=== PATIENT | female | born 1950 | race Caucasian/White ===

== ENCOUNTER 2018-11-04 09:37 | Inpatient (IN) | payer MEDICARE, OTHER, SELFPAY ==
[2018-11-04] VITALS (10 sets, daily range): BP systolic 110–141; BP diastolic 58–80; PULSE 81–100; RESP 16–20; TEMP 36.3–37.6; O2SAT 94–100; BMI 49.4
--- NOTE | 2018-11-04 | FLU_PTH ---
PATIENT: ANNY RODRIGUES LOC: MS3 U#:[id number] AGE/SX: 68/F ROOM: RI312 RE11/04/[address]: Dr. Tom Dewey MD : [id number] BED: 1 DIS: 11/07/2018 SPEC #: [id number] RECD: 11/04/18 10:30 STATUS: JOSE LUIS REGisela #: [id number] JUAN CARLOS: 11/04/18 00:[address]: Tom Dewey DEPT: CYTOLOGY RECD BY: Kadi Mccormack ENTERED: 11/04/18 11:45 SP TYPE: Fluid OTHR DR: Dr. Tere Davila MD Tissues: A - Synovial fluid B - FOREIGN BODY Procedures: PAS Fungus (control) Surgery Specimen Level I Special Stain Group II Special Stain Group I Surgery Specimen Level IV AFB Stain (control) Cytospin Fluid HEADER OPERATION: Not noted PRE-OP DIAGNOSIS: Not noted TISSUE SUBMITTED: A. Synovial fluid, B. Foreign body (found by Micro staff) DIAGNOSIS CYTOLOGY A. Synovial fluid (cytospin and cell block): Negative for malignant cells. Acute inflammation. See comment. B. Foreign body: Consistent with nonmetallic foreign body. SJ:zachery 11/05/18 COMMENT A. Special stains for acid fast bacilli and fungi are negative for organisms; matched controls are appropriate. Clinical correlation and appropriate follow up are necessary. CYTOLOGY STUDY Slides are reviewed. CYTOLOGY GROSS A - Received is 10 ml of thick/cloudy pale yellow fluid labeled with the patient's name and and designated per the requisition as left knee. Submitted for cytology preparation including cell block. / CC:cc 11/04/18 B - Received along with cytology fluid is a dark lema-black, nonmetallic foreign body measuring 0.8 x 0.2 x <0.1 cm. No sections are submitted. / AM:zachery 11/04/18 TC:2 CPT: 62073, 50067, 85332, 08763 x2
[2018-11-04 10:31] LABS: Acid Fast Stain SEE PATHOLOGY REPORT; Cytology, Body Fluid / CSF SEE PATHOLOGY REPORT
[2018-11-04 10:55] LABS: Erythrocyte Sedimentation Rate 87 mm/hr (0-30)
[2018-11-04 10:57] LABS: Absolute Lymphocyte Count 0.54 X10^3/ul (0.83-4.51); Absolute Neutrophil Count 7.9 X10^3/uL (2.0-7.7); Basophil# 0.01 X10^3/uL; Basophil% 0.1 % (0-1); Hematocrit 39.9 % (37-47); Lymphocyte # 0.54 X10^3/ul (4.0); Mean Corp Hgb Conc 32.6 g/gl (32-36); Mean Corpuscular Hgb 30.2 pg (27.0-32.0); Mean Corpuscular Volume 92.8 fL (81-99); Mean Platelet Vol. 10.8 fl (6.2-12.0); Monocyte# 0.56 X10^3/uL; Monocyte% 6.2 % (0-10); Neutrophil % 87.6 % (47-70); Platelet Count 160 K/mm3 (150-450); RBC Distribution Width SD 46.4 fl (35.1-43.9)
[2018-11-04 10:57] LABS: AUTO B FLUID DILUENT BKGD CT WBC <0.1 RBC <0.01 (W<.1,R<.01); Viscosity / Synovial Fluid Mod. Viscous (HIGH)
[2018-11-04 10:58] LABS: Differential Indicated SCAN CRITERIA MET; POSITIVE COUNT NO; POSITIVE DIFFERENTIAL YES; POSITIVE MORPHOLOGY NO
[2018-11-04 11:08] LABS: RBC /Synovial Fluid 0.024 10^6/uL (0)
[2018-11-04 11:09] LABS: Appearance /Synovial Fluid Cloudy (CLEAR); Color / Synovial Fluid YELLOW (Pale Yellow)
[2018-11-04 11:55] LABS: Lymph 9 %; Neutrophil 91 % (0-25)
[2018-11-04 12:41] LABS: Body Fluid QC Type(s) BF5Q
[2018-11-04 13:29] LABS: Anion Gap 8 (5-15); BUN 9 mg/dL (7-18); BUN/Creat Ratio 12.6 RATIO (10-20); Calcium,Total 8.4 mg/dL (8.5-10.1); Chloride 102 mmol/L (98-107); Creatinine, Serum 0.72 mg/dL (0.55-1.02); EST Glomerular Filtration Rate 86 mL/min (>60); Est Glom Filt Rate - Afr Amer 104 mL/min (>60); Glucose 99 mg/dL (74-106); Potassium 3.5 mmol/L (3.5-5.1); Sodium Level 133 mmol/L (136-145)
[2018-11-04 15:45] LABS: Source / Synovial Fluid L KNEE
--- NOTE | 2018-11-04 16:47 | OP.PCM_ITS ---
Report of Operation Date of Procedure: 11/04/18 Pre-Operative Diagnosis: Acute hematogenous infection left TKA Post-Operative Diagnosis: Acute hematogenous infection left TKA Surgery/Procedure Performed:: Irrigation debridement with polyethylene exchange left total knee replacement Description of Surgical Findings:: Complete synovial debridement material handling equipment stevedore: Lesly Grijalva Type of Anesthesia:: Spinal Anesthesiologist: Chirag Iverson Special Medications: 3 g Ancef, 1 g vancomycin IV, 1 g vancomycin in the wound. Specimen's removed: 3 separate specimens were sent to micrology Drains: Lateral suprapatellar Hemovac drain Estimated Blood Loss (mL): 75 Fluids Replaced: 1 L crystalloid Description of Procedure: 68 yo F history of L TKA in August 2016 presents with acute hematogenous infection of her left total knee. Reviewed options were discussed the patient. Based on acuity of the symptoms and organism irrigation debridement with polyethylene exchange is recommended. Risks and benefits of the procedure were discussed with the patient including but not limited to blood loss, DVTs, PEs, neurovascular damage, infection, general risk of anesthesia including loss of life. Demonstrated understanding and was able to sign informed consent. On the date of procedure patient'sL lower extremity was marked in the preoperative area. The patient was then taken back to the operating room where the patient was placed on the table in the supine position. All bony prominences were identified a well-padded. Anesthesia assumed control of the C-spine and airway and remained controlled throughout the remainder of the procedure. A tourniquet was placed on the operative thigh and the leg was prepped in a sterile fashion. The surgeon then scrubbed at this time .Upon reentering the room left lower extremity was draped in a standard orthopedic fashion. A timeout was then called and everyone agreed upon the side, the site, the procedure to be performed, patient's identity and antibiotics given. A midline skin incision was made and sharp dissection was taken down through skin subcutaneous tissue and fat. Appropriate flaps were elevated medially and laterally. His arthrotomy was identified and the standard medial parapatellar incision was made and the patella was subluxed laterally. The standard deep MCL release was done. At this point an aggressive synovectomy commenced. Our attention was first turn ed towards the subpatellar pouch and all suspicious synovium and tissues were debrided. We then directed our attention towards medial lateral gutters were these tissues were aggressively debrided. Knee was then flexed up the polyethylene was removed. Once polyethylene was removed we did the remainder of the synovium in the medial and lateral gutters and along the lateral structures and MCL. We then debrided the posterior knee. Knee was flexed up and culture was taken from the femoral notch. And also there was a membrane beneath the tibial baseplate that was removed and sent for culture. He had completed our synovectomy and were happy with the joint. We then used a chlorahexadine with sterile water solution for 1 minute lavage. 6 L of normal saline were then irrigated throughout the wound with low-pressure lavage and the wound was once again explored. All remaining tissue that was suspicious was seen in the wound was once again irrigated with normal saline. 10 mm ultracongruent Ottoniel persona polyethylene was then opened and put back into place after appropriate trialing. Tourniquet was let down and hemostasis was obtained as well as possible. Lateral drain was placed in 1 g of vancomycin powder were placed in the wound/joint. Once the final components were placed the wound was copiously irrigated with normal saline solution. The wound was closed in a layer del valle fashion using #1 vicryl interrupted sutures for the arthrotomy, 2-0 interrupted Vicryl for the subcuticular layer and orquidea for final skin closure. A sterile compressive dressing was then placed. The patient was then awakened from anesthesia, transferred to the [facility] and transferred to the PACU for recovery. Post op plan Infectious disease will be consulted. I started Ancef and vancomycin for the next 24 hours. Patient can be weightbearing as tolerated activity as tolerated. Xarelto for DVT prophylaxis for 2 weeks followed by aspirin for 2 weeks. Grafts/Implants Used: Ottoniel ultra congruent persona 10 mm for size E tibia - Complications No intraoperative complications - Admit VTE Documentation VTE Present on Admission: No VTE Mechan Device Prophylaxis: SCD's, Thigh High JIN Hose VTE Pharm Prophylaxis ordered?: Yes
[2018-11-04] MEDS: Vancomycin IV 1,000 MG/200 ML BAG 200 MG IV (17:03)
[2018-11-04] MEDS: Morphine 2 MG/ML Syringe IV (20:00)
[2018-11-04] MEDS: Lactated Ringers 1,000 ML 90 ML IV (20:14)
[2018-11-04] MEDS: Ketorolac 15 MG/ML Vial IV (20:30)
[2018-11-04] MEDS: Acetaminophen 500 MG Tablet 1000 MG PO (21:37)
[2018-11-04] MEDS: Senna/Docusate Sodium 1 Tablet 2 TABLET PO (21:38)
[2018-11-05] MEDS: Cefazolin 1 GM/50 ML BAG IV ×2 (00:30→08:28)
[2018-11-05] MEDS: oxyCODONE 5 MG Tablet PO ×5 (02:10→20:49)
[2018-11-05 02:16] VITALS: BP 146/70; PULSE 81; RESP 20; TEMP 36.4; O2SAT 100
[2018-11-05] MEDS: Ketorolac 15 MG/ML Vial IV (02:21)
[2018-11-05 05:37] LABS: Hematocrit 33.5 % (37-47); Hemoglobin 10.9 g/dl (12.0-15.0); Mean Corp Hgb Conc 32.5 g/gl (32-36); Mean Corpuscular Hgb 30.4 pg (27.0-32.0); Mean Corpuscular Volume 93.6 fL (81-99); Mean Platelet Vol. 10.5 fl (6.2-12.0); Platelet Count 154 K/mm3 (150-450); RBC Distribution Width SD 46.1 fl (35.1-43.9); Red Blood Count 3.58 M/mm3 (4.2-5.4); White Blood Count 6.2 K/mm3 (4.4-11.0)
[2018-11-05] MEDS: Vancomycin IV 1,000 MG/200 ML BAG 200 MG IV ×2 (05:40→17:13)
[2018-11-05 05:42] LABS: Scan Indicated on CBC? Y/N NO
[2018-11-05] MEDS: Acetaminophen 500 MG Tablet 1000 MG PO ×3 (05:46→21:00)
[2018-11-05] MEDS: Rivaroxaban 10 MG Tablet PO (05:46)
[2018-11-05 05:59] LABS: Anion Gap 8 (5-15); BUN 7 mg/dL (7-18); BUN/Creat Ratio 10.7 RATIO (10-20); Calcium,Total 8.3 mg/dL (8.5-10.1); Chloride 104 mmol/L (98-107); Creatinine, Serum 0.65 mg/dL (0.55-1.02); EST Glomerular Filtration Rate 95 mL/min (>60); Est Glom Filt Rate - Afr Amer 115 mL/min (>60); Glucose 114 mg/dL (74-106); Potassium 3.4 mmol/L (3.5-5.1); Sodium Level 137 mmol/L (136-145)
--- NOTE | 2018-11-05 07:09 | PN.ORTHO_ITS ---
Subjective: Patient sitting up in bed. States pain is much better than yesterday. Patient denies chest pain, shortness breath, calf pain, nausea vomiting. No other complaints at this time. Objective: Dressing is clean dry intact. Hemovac drain in place with a small amount of bloody fluid, which is not measurable. Patient's vitals are within normal limits patient's potassium is 3.4 patient is afebrile. Negative signs and symptoms of DVT. Patient neurovascular is otherwise intact. Patient is speaking in full sentences, in no obvious respiratory distress. - Physical Exam General: Alert, Oriented x3, Cooperative HEENT: PERRLA Oral: Moist Mucosa Cardiovascular: Regular rate Neurological: Cranial nerves II-XII grossly intact Psych/Mental Status: Normal Affect, Alert and oriented to time, place, person, mood and affect Vital Signs Temp Pulse Resp BP Pulse Ox 97.6 F L 81 20 H 146/70 H 100 11/05/18 02:16 11/05/18 02:16 11/05/18 02:16 11/05/18 02:16 11/05/18 02:16 Oxygen Flow Rate (L/min) 2 Oxygen Delivery Method Room Air Weight: 122.47 kg Body Mass Index (BMI) 49.4 Intake and Output for Last 24 Hours 11/03/18 11/04/18 11/05/18 23:59 23:59 23:59 Intake Total 1700 / 1700 2417 / 2417 Output Total 1550 / 1550 Balance 1700 / 1700 867 / 867 Microbiology Past 72 Hours 11/04/18 Unknown Gram Stain - Final Fluid - Synovial (joint) Laboratory Tests Past 24 Hrs 11/04/18 11/04/18 11/04/18 09:52 09:52 09:52 WBC 9.0 RBC 4.30 Hgb 13.0 Hct 39.9 MCV 92.8 MCH 30.2 MCHC 32.6 RDW 14.0 RDW Differential 46.4 H Plt Count 160 MPV 10.8 Immature Gran % (Auto) 0.100 Neut % (Auto) 87.6 H Lymph % (Auto) 6.0 L [place] % (Auto) 6.2 Eos % (Auto) 0.0 Baso % (Auto) 0.1 Absolute Neuts (auto) 7.9 H Absolute Lymphs (auto) 0.54 L Total Counted Not Reportable ESR 87 H Cancelled Sodium Potassium Chloride Carbon Dioxide Anion Gap BUN Creatinine Estim Creat Clear Calc Est GFR (MDRD) Af Amer Est GFR (MDRD) Non-Af BUN/Creatinine Ratio Glucose Calcium C-React Prot Ext Range 264.00 H Synovial Source Synovial Color Synovial Appearance Synovial Viscosity Synovial WBC Synovial RBC Synovial Tot Cell Ct Synovial Neutrophils Synovial Lymphocytes Synovial Path Comment Acid Fast Stain Miscellaneous Cytology 11/04/18 11/04/18 11/04/18 09:52 Unknown Unknown WBC RBC Hgb Hct MCV MCH MCHC RDW RDW Differential Plt Count MPV Immature Gran % (Auto) Neut % (Auto) Lymph % (Auto) [place] % (Auto) Eos % (Auto) Baso % (Auto) Absolute Neuts (auto) Absolute Lymphs (auto) Total Counted ESR Sodium 133 L Potassium 3.5 Chloride 102 Carbon Dioxide 23.0 Anion Gap 8 BUN 9 Creatinine 0.72 Estim Creat Clear Calc 41.40 Est GFR (MDRD) Af Amer 104 Est GFR (MDRD) Non-Af 86 BUN/Creatinine Ratio 12.6 Glucose 99 Calcium 8.4 L C-React Prot Ext Range Synovial Source L KNEE Synovial Color YELLOW Synovial Appearance Cloudy Synovial Viscosity Mod. Viscous Synovial WBC 71.7000 H Synovial RBC 0.024 H Synovial Tot Cell Ct 71.5300 H Synovial Neutrophils 91 H Synovial Lymphocytes [address] Comment May follow Acid Fast Stain Pending Miscellaneous Cytology Pending 11/05/18 11/05/18 05:20 05:20 WBC 6.2 RBC 3.58 L Hgb 10.9 L Hct 33.5 L MCV 93.6 MCH 30.4 MCHC 32.5 RDW 14.0 RDW Differential 46.1 H Plt Count 154 MPV 10.5 Immature Gran % (Auto) Neut % (Auto) Lymph % (Auto) [place] % (Auto) Eos % (Auto) Baso % (Auto) Absolute Neuts (auto) Absolute Lymphs (auto) Total Counted ESR Sodium 137 Potassium 3.4 L Chloride 104 Carbon Dioxide 25.0 Anion Gap 8 BUN 7 Creatinine 0.65 Estim Creat Clear Calc 41.40 Est GFR (MDRD) Af Amer 115 Est GFR (MDRD) Non-Af 95 BUN/Creatinine Ratio 10.7 Glucose 114 H Calcium 8.3 L C-React Prot Ext Range Synovial Source Synovial Color Synovial Appearance Synovial Viscosity Synovial WBC Synovial RBC Synovial Tot Cell Ct Synovial Neutrophils Synovial Lymphocytes Synovial Path Comment Acid Fast Stain Miscellaneous Cytology Medical Necessity - Tobacco Use Smoking Status: Never smoker Assessment/Plan Status post I&D and poly-exchange of a septic left total knee Plan 1. Continue all pain medications as prescribed 2. Xarelto 10 mg 1 p.o. daily for postop DVT prophylaxis 3. Begin physical therapy weight-bear as tolerated with walker 4. Encourage incentive spirometry 5. Medicine will continue to medically manage. 6. ID will direct IV antibiotic treatment
[2018-11-05] MEDS: Famotidine 20 MG Tablet PO (08:31)
[2018-11-05] MEDS: Senna/Docusate Sodium 1 Tablet 2 TABLET PO ×2 (08:31→21:00)
[2018-11-05 08:32] VITALS: BP 154/77; PULSE 78; RESP 16; TEMP 36.3; O2SAT 96
--- NOTE | 2018-11-05 10:00 | CASEMGMT ---
YUSUF LING Face to Face with patient for initial transition planning/care coordination assessment. RN CM introduced self and role at [facility]. Patient lying in bed, alert and oriented, at bedside. Patient willing to participate in assessment and is able to answer all questions appropriately. Care providers, pharmacy, and demographics verified. Patient wishes to discharge home,with possible HHC for IV ATBs and therapy. Patient states she has no further needs or concerns at this time. CM to follow for discharge planning needs that may arise. PCP: Lola Specialists: Zuleima Fuller Pharmacy: [facility] Insurance: [employer] Prescription Benefit: yes Living Will/HPOA: yes, Anthony Connors LNOK: Living Arrangements: Patient lives with in single story home with 2 steps to enter. Patient independent at home prior to surgery. Transportation: DME/HHC: Patient states she has shower chair, cane, walker, raised toilet, and cpap at home. No preference for HHC or infusion company. Referral sent to [facility] and [facility]. Disposition Plan: Home with IV ATBs, HHC, family support, and follow-up plans in place. Mica CARVER, RN, CM
--- NOTE | 2018-11-05 10:24 | PCM.RX.CS ---
Consult Pharmacy has been consulted to manage selected antiobiotic: Vancomycin Type of Consult: New start Suspected Infection: Other Prior Doses of Antibiotics Received/Current Regimen: VANCOMYCIN 1000MG IV POST-OP 11/04/18 @0540 Labs: Sodium 137 mmol/L (136-145) 11/05/18 05:20 Potassium 3.4 mmol/L (3.5-5.1) L 11/05/18 05:20 Chloride 104 mmol/L (98-107) 11/05/18 05:20 Carbon Dioxide 25.0 mmol/L (21.0-32.0) 11/05/18 05:20 Anion Gap 8 (5-15) 11/05/18 05:20 BUN 7 mg/dL (7-18) 11/05/18 05:20 Creatinine 0.65 mg/dL (0.55-1.02) 11/05/18 05:20 Est GFR (MDRD) Af Amer 115 mL/min (>60) 11/05/18 05:20 Est GFR (MDRD) Non-Af 95 mL/min (>60) 11/05/18 05:20 BUN/Creatinine Ratio 10.7 RATIO (10-20) 11/05/18 05:20 Glucose 114 mg/dL (74-106) H 11/05/18 05:20 Microbiology: Microbiology 11/04/18 Unknown Fluid - Synovial (joint) Gram Stain - Final Weight used for dosin kg Estimated Creatinine Clearance: 41 ML/MIN Goal Trough: 15-20 mcg/mL Pharmacy Plan for Drug Dosing: The patient previously got a pre/post-op dose of vancomycin, with last administered dose listed above. Will schedule a trough prior to the 4th dose vancomycin administered. PLAN/RECOMMENDATIONS 1. Vancomycin 1000mg IV Q12hr to start 11/05/18 @1700 (~12hrs from post-op vancomycin dose) 2. Trough scheduled for 11/06/18 @1630 3. Pharmacy Service will continue to monitor and adjust dosing as required.
--- NOTE | 2018-11-05 10:31 | PCM.HP.ID ---
Problem List (1) Infection of prosthetic left knee joint Status: Acute Reason for Consult: PJI Consulted by: Dr. Dewey History of Present Illness: The patient is a 68 year old F with h/o L knee replacement. Fell and hurt her LLE on a bolt about 2.5 weeks ago. Over past few days, progressive L knee swelling and pain. No drainage, some chills. Went to ortho office yesterday, aspiration done, sent to hospital and taken to OR with Dr. Dewey for I&D and poly exchange. Feeling ok, pain controlled. Full ROS performed and neg except as noted above. - Medical History Allergies/Adverse Reactions: Allergies adhesive tape Adverse Reaction (Verified 08/26/16 09:56) Rash Home Medications: Ambulatory Orders Medication Instructions Recorded Acetaminophen [Tylenol Extra 500 - 1,000 mg PO Q6H PRN PRN 08/26/16 Strength] Fluticasone Propionate [Flonase 2 sprays NS DAILY PRN PRN 08/26/16 Allergy Relief] Levothyroxine [Synthroid] 150 mcg PO SUTUTHSA 08/26/16 Levothyroxine [Synthroid] 175 mcg PO MOWEFR 08/26/16 Omeprazole [Prilosec] 40 mg PO DAILY PRN PRN 08/26/16 Oxybutynin [Ditropan] 5 mg PO BID 08/26/16 Hydrocodone Bitart/Apap 5-325 1 - 2 tablet PO Q6H PRN PRN #80 09/05/16 [[place] 5/325] tablet Aspirin 325 mg PO BIDCM 11/04/18 Ceftriaxone 2 gm IV Q24 40 Days #40 vial 11/05/18 Vancomycin IV [Vancomycin] 1,000 mg IV Q12H 40 Days #80 bag 11/05/18 - Social History Tobacco Use: non-smoker Vital Signs Temp Pulse Resp BP Pulse Ox 97.4 F L 78 16 154/77 H 96 11/05/18 08:32 11/05/18 08:32 11/05/18 08:32 11/05/18 08:32 11/05/18 08:32 Oxygen Flow Rate (L/min) 2 Oxygen Delivery Method Room Air Weight: 122.47 kg Body Mass Index (BMI) 49.4 Microbiology Past 72 Hours 11/04/18 Unknown Gram Stain - Final Fluid - Synovial (joint) Laboratory Tests Past 24 Hrs 11/04/18 11/04/18 11/04/18 09:52 09:52 09:52 WBC 9.0 RBC 4.30 Hgb 13.0 Hct 39.9 MCV 92.8 MCH 30.2 MCHC 32.6 RDW 14.0 RDW Differential 46.4 H Plt Count 160 MPV 10.8 Immature Gran % (Auto) 0.100 Neut % (Auto) 87.6 H Lymph % (Auto) 6.0 L [place] % (Auto) 6.2 Eos % (Auto) 0.0 Baso % (Auto) 0.1 Absolute Neuts (auto) 7.9 H Absolute Lymphs (auto) 0.54 L Total Counted Not Reportable ESR 87 H Cancelled Sodium Potassium Chloride Carbon Dioxide Anion Gap BUN Creatinine Estim Creat Clear Calc Est GFR (MDRD) Af Amer Est GFR (MDRD) Non-Af BUN/Creatinine Ratio Glucose Calcium C-React Prot Ext Range 264.00 H Synovial Source Synovial Color Synovial Appearance Synovial Viscosity Synovial WBC Synovial RBC Synovial Tot Cell Ct Synovial Neutrophils Synovial Lymphocytes Synovial Path Comment 11/04/18 11/04/18 11/05/18 09:52 Unknown 05:20 WBC 6.2 RBC 3.58 L Hgb 10.9 L Hct 33.5 L MCV 93.6 MCH 30.4 MCHC 32.5 RDW 14.0 RDW Differential 46.1 H Plt Count 154 MPV 10.5 Immature Gran % (Auto) Neut % (Auto) Lymph % (Auto) [place] % (Auto) Eos % (Auto) Baso % (Auto) Absolute Neuts (auto) Absolute Lymphs (auto) Total Counted ESR Sodium 133 L Potassium 3.5 Chloride 102 Carbon Dioxide 23.0 Anion Gap 8 BUN 9 Creatinine 0.72 Estim Creat Clear Calc 41.40 Est GFR (MDRD) Af Amer 104 Est GFR (MDRD) Non-Af 86 BUN/Creatinine Ratio 12.6 Glucose 99 Calcium 8.4 L C-React Prot Ext Range Synovial Source L KNEE Synovial Color YELLOW Synovial Appearance Cloudy Synovial Viscosity Mod. Viscous Synovial WBC 71.7000 H Synovial RBC 0.024 H Synovial Tot Cell Ct 71.5300 H Synovial Neutrophils 91 H Synovial Lymphocytes [address] Comment September follow 11/05/18 05:20 WBC RBC Hgb Hct MCV MCH MCHC RDW RDW Differential Plt Count MPV Immature Gran % (Auto) Neut % (Auto) Lymph % (Auto) [place] % (Auto) Eos % (Auto) Baso % (Auto) Absolute Neuts (auto) Absolute Lymphs (auto) Total Counted ESR Sodium 137 Potassium 3.4 L Chloride 104 Carbon Dioxide 25.0 Anion Gap 8 BUN 7 Creatinine 0.65 Estim Creat Clear Calc 41.40 Est GFR (MDRD) Af Amer 115 Est GFR (MDRD) Non-Af 95 BUN/Creatinine Ratio 10.7 Glucose 114 H Calcium 8.3 L C-React Prot Ext Range Synovial Source Synovial Color Synovial Appearance Synovial Viscosity Synovial WBC Synovial RBC Synovial Tot Cell Ct Synovial Neutrophils Synovial Lymphocytes Synovial Path Comment - Other Studies Radiology: [] reviewed Other Studies: [] Route of nutrition/ use of supplements: [] Nutritional Intake: [] IV Site: [] [place] Catheter: [] - Physical Exam General: Alert, Oriented x3, Cooperative, No apparent distress HEENT: Atraumatic, PERRLA, EOMI Neck: Supple, No JVD Lungs: Clear to auscultation, Normal air movement Cardiovascular: Regular rate, Regular Rhythm, No murmurs Abdomen: Bowel Sounds Present, Soft, Non Tender, Non-Distended Extremities: Edema Skin: Incision - knee wrapped IV Site: Peripheral, without redness Neurological: Cranial nerves II-XII grossly intact - Assessment/Plan Antibiotics: [] Assessment/Plan: [] L knee PJI - cxs pending, will check bcx. No fever, normal wbc here. Will cover with vanc/ceftriaxone for now. Will follow, thank you.
[2018-11-05 10:53] VITALS: BP 135/73; PULSE 80; RESP 16; TEMP 36.3; O2SAT 96
--- NOTE | 2018-11-05 12:46 | PCM.PROGNOTE ---
Patient Problems: Active and Suspected Problems Infection of prosthetic left knee joint (Acute) Subjective: Hospitalist consult Patient is a 68-year-old female with a past medical history of hypothyroidism, GERD, obstructive sleep apnea, and breast cancer with history of lumpectomy in 2001 and 2007 who was admitted to the hospital on 11/04/2018 for irrigation and complete synovial debridement with polyethylene exchange of a left total knee replacement. She had a left TKA in August 2016 and now has an acute hematogenous infection of her left total knee. She fell approximately 2-1/2 weeks ago and over the few days preceding her hospital admission experienced progressive left knee swelling and pain. A culture of the synovial fluid sent on 11/04/2018 is growing group B strep. The patient was seen in consultation by Dr. Ed Crawford from infectious disease today. Patient is currently on vancomycin and ceftriaxone. T-max is 99.7. Blood pressure and heart rate are stable. She is 96 to 100% saturated on room air. All lab was personally reviewed. White blood cell count today is 6.2. White blood cell count on 11/04/2018 was 9.0 with a left shift. Sodium is normal today at 137, up from 133 at admission. Potassium is 3.4 today and the BUN is 7 with a creatinine of 0.65. C-reactive protein is 264 and the sed rate is 87. Denies dysuria, cough, abdominal pain. Tells me she has stress and urge urinary incontinence and constant urinary urgency. She also tells me that she may have a small fissure in the perianal area has some time she has blood on her skin. Tells me that she fell a few weeks ago and had an abrasion of the left knee. It recently became swollen and painful. - Physical Exam General: Alert, Oriented x3, Cooperative, No apparent distress, Well developed, Well nourished HEENT: Atraumatic, PERRLA, EOMI, Normocephalic Oral: Moist Mucosa, No Gingival or Mucosal Lesions/ Ulcerations Neck: No JVD, Negative Carotid Bruits Lungs: Clear to auscultation - anterior and lateral, No rhonchi, No wheeze, No rales Cardiovascular: Regular rate, Regular Rhythm, Normal S1, Normal S2, No murmurs, No rub noted, No Gallop Abdomen: Bowel Sounds Present, Soft, Non Tender, Non-Distended Extremities: No clubbing, No cyanosis, - - left leg is in a brace and wrapped with a polar ice Skin: No rashes Musculoskeletal: No Muscle Wasting, Arthritic Changes Neurological: Cranial nerves II-XII grossly intact, Neuro grossly intact Psych/Mental Status: Normal Affect, Appropriate Vital Signs Temp Pulse Resp BP Pulse Ox 97.4 F L 80 16 135/73 H 96 11/05/18 10:53 11/05/18 10:53 11/05/18 10:53 11/05/18 10:53 11/05/18 10:53 Oxygen Flow Rate (L/min) 2 Oxygen Delivery Method Room Air Weight: 270 lb 0.002 oz Body Mass Index (BMI) 49.4 Intake and Output for Last 24 Hours 11/03/18 11/04/18 11/05/18 23:59 23:59 23:59 Intake Total 1700 / 1700 3179 / 3179 Output Total 2650 / 2650 Balance 1700 / 1700 529 / 529 Microbiology Past 72 Hours 11/04/18 16:54 Wound Culture - Preliminary Biopsy - Other No growth-Final to follow 11/04/18 Unknown Gram Stain - Final Fluid - Synovial (joint) Body Fluid Culture - Preliminary Streptococcus group B Laboratory Tests Past 24 Hrs 11/04/18 11/04/18 11/04/18 09:52 09:52 Unknown WBC RBC Hgb Hct MCV MCH MCHC RDW RDW Differential Plt Count MPV ESR Cancelled Sodium 133 L Potassium 3.5 Chloride 102 Carbon Dioxide 23.0 Anion Gap 8 BUN 9 Creatinine 0.72 Estim Creat Clear Calc 41.40 Est GFR (MDRD) Af Amer 104 Est GFR (MDRD) Non-Af 86 BUN/Creatinine Ratio 12.6 Glucose 99 Calcium 8.4 L Synovial Source L KNEE Synovial Color YELLOW Synovial Appearance Cloudy Synovial Viscosity Mod. Viscous Synovial WBC 71.7000 H Synovial RBC 0.024 H Synovial Tot Cell Ct 71.5300 H Synovial Neutrophils 91 H Synovial Lymphocytes [address] Comment May follow Acid Fast Stain Miscellaneous Cytology 11/04/18 11/05/18 11/05/18 Unknown 05:20 05:20 WBC 6.2 RBC 3.58 L Hgb 10.9 L Hct 33.5 L MCV 93.6 MCH 30.4 MCHC 32.5 RDW 14.0 RDW Differential 46.1 H Plt Count 154 MPV 10.5 ESR Sodium 137 Potassium 3.4 L Chloride 104 Carbon Dioxide 25.0 Anion Gap 8 BUN 7 Creatinine 0.65 Estim Creat Clear Calc 41.40 Est GFR (MDRD) Af Amer 115 Est GFR (MDRD) Non-Af 95 BUN/Creatinine Ratio 10.7 Glucose 114 H Calcium 8.3 L Synovial Source Synovial Color Synovial Appearance Synovial Viscosity Synovial WBC Synovial RBC Synovial Tot Cell Ct Synovial Neutrophils Synovial Lymphocytes Synovial Path Comment Acid Fast Stain Pending Miscellaneous Cytology Pending Medical Necessity - Tobacco Use Smoking Status: Never smoker Assessment/Plan All Active Problems 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 septic arthritis left knee with hx of prior TKA - POD #1. the preliminary report is Group B strep - source of primary infection ? 2. Hyponatremia 3. Hypokalemia 4. History of breast cancer with bilateral lumpectomy in 2001 and 2007. 5. Hypothyroidism 6. GERD 7. Morbid obesity IV antibiotics per Dr. Crawford Check a UA The next time she goes to the [facility] will have her nurse check the perianal area for fissures Will need a PICC if BC's are negative consult DC planning - C for IV antibiotics Will follow along while she is in the hospital Supplement potassium CMP, mag, phos and CBC with diff in the AM Code Visit Inpatient E&M: 22341 Subs Hosp L2
[2018-11-05 15:13] VITALS: BP 136/77; PULSE 90; RESP 16; TEMP 36.8; O2SAT 96
[2018-11-05 15:35] LABS: Pathologist Comment Reviewed
[2018-11-05 20:54] VITALS: BP 133/64; PULSE 83; RESP 18; TEMP 36.5; O2SAT 97
[2018-11-05] MEDS: Lactated Ringers 1,000 ML 15 ML IV (21:00)
[2018-11-06] MEDS: oxyCODONE 5 MG Tablet PO ×5 (03:43→21:27)
[2018-11-06 03:48] VITALS: BP 116/73; PULSE 84; RESP 18; TEMP 36.5; O2SAT 96
[2018-11-06] MEDS: Rivaroxaban 10 MG Tablet PO (05:30)
[2018-11-06] MEDS: Vancomycin IV 1,000 MG/200 ML BAG 200 MG IV (05:30)
[2018-11-06] MEDS: Acetaminophen 500 MG Tablet 1000 MG PO ×3 (05:30→21:28)
[2018-11-06 06:05] LABS: Hematocrit 32.5 % (37-47); Hemoglobin 10.7 g/dl (12.0-15.0); Mean Corp Hgb Conc 32.9 g/gl (32-36); Mean Corpuscular Hgb 30.5 pg (27.0-32.0); Mean Corpuscular Volume 92.6 fL (81-99); Mean Platelet Vol. 10.4 fl (6.2-12.0); Platelet Count 174 K/mm3 (150-450); RBC Distribution Width CV 14.1 % (11.6-14.6); RBC Distribution Width SD 45.8 fl (35.1-43.9); Red Blood Count 3.51 M/mm3 (4.2-5.4); White Blood Count 5.6 K/mm3 (4.4-11.0)
[2018-11-06 06:06] LABS: Scan Indicated on CBC? Y/N NO
[2018-11-06 06:19] LABS: ALB/GLOB Ratio 0.5 RATIO (0.9-2.4); AST(SGOT) 23 U/L (15-37); Alanine Aminotransfer ALT/SGPT 18 U/L (13-56); Alkaline Phosphatase 101 U/L (45-117); Anion Gap 9 (5-15); BUN 5 mg/dL (7-18); BUN/Creat Ratio 9.7 RATIO (10-20); Calcium,Total 8.3 mg/dL (8.5-10.1); Chloride 104 mmol/L (98-107); Creatinine, Serum 0.52 mg/dL (0.55-1.02); EST Glomerular Filtration Rate 125 mL/min (>60); Est Glom Filt Rate - Afr Amer 151 mL/min (>60); Globulin 4.4 g/dL (2.2-4.2); Glucose 102 mg/dL (74-106); Magnesium 2.2 mg/dL (1.6-2.6); Phosphorus 3.1 mg/dL (2.5-4.9); Potassium 3.4 mmol/L (3.5-5.1); Protein, Total 6.4 g/dL (6.4-8.2); Sodium Level 140 mmol/L (136-145)
[2018-11-06 08:16] VITALS: BP 111/69; PULSE 88; RESP 18; TEMP 36.7; O2SAT 97
[2018-11-06] MEDS: Ketorolac 15 MG/ML Vial IV (08:25)
[2018-11-06] MEDS: 0.9% NaCl Peripheral Flush Adult/Peds IV (08:25)
--- NOTE | 2018-11-06 09:30 | CASEMGMT ---
YUSUF LING called I to inquire how much IV ATB at discharge will cost. Cost per day for antibiotic and supplies is $25 per day for 40 days. Patient updated and would like to go to the infusion clinic. YUSUF LING updated [facility] regarding request for infusion clinic. Per [facility] is patient is going to infusion clinic daily patient is not home bound. Patient updated and would like outpatient therapy setup with [facility]. [facility] called and therapy setup for Friday11/09/18 at 3pm. YUSUF LING sent referral to [facility] Outpaitent infusion clinic and arranged to outpatient antibiotics. Paitent to discharge Friday after antiobiotic and therapy. Friday patient will need to go to ED registration. Friday patient will go to outpatient infusion clinic at 1:30PM. YUSUF LING updated patient and family.
--- NOTE | 2018-11-06 09:37 | PCM.PN.ORT ---
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 Patient states pain is much better today than yesterday. Patient rating her pain today as a 3. Patient denies chest pain, shortness breath, calf pain, nausea vomiting. Patient is ready for discharge home. Patient understands that she may have to stay 1 additional day to better manage long-term her pain as well as arrange for her home antibiotic and have PICC line placed today Objective: The dressing was clean dry intact. The knee is cool to touch there is +2 effusion. Patient drain in place this was removed patient tolerated very well. There was a small amount of fluid unmeasurable in the container. Patient had no calf pain. Negative signs and symptoms of the DVT. Patient is afebrile neurovascular is otherwise intact. No signs within normal limits. - Physical Exam General: Alert, Oriented x3, Cooperative HEENT: PERRLA Oral: Moist Mucosa Cardiovascular: Regular rate Neurological: Cranial nerves II-XII grossly intact Psych/Mental Status: Normal Affect, Alert and oriented to time, place, person, mood and affect Vital Signs Temp Pulse Resp BP Pulse Ox 98.1 F 88 18 111/69 97 11/06/18 08:16 11/06/18 08:16 11/06/18 08:16 11/06/18 08:16 11/06/18 08:16 Oxygen Flow Rate (L/min) 2 Oxygen Delivery Method Room Air Weight: 122.47 kg Body Mass Index (BMI) 49.4 Intake and Output for Last 24 Hours 11/04/18 11/05/18 11/06/18 23:59 23:59 23:59 Intake Total 1700 / 1700 3829 / 3829 941 / 941 Output Total 3250 / 3250 1999 / 1999 Balance 1700 / 1700 579 / 579 -1059 / -1059 Microbiology Past 72 Hours 11/04/18 Unknown Gram Stain - Final Fluid - Synovial (joint) Body Fluid Culture - Final Streptococcus agalactiae (B) 11/04/18 16:54 Gram Stain - Final Tissue - Other Wound Culture - Preliminary Streptococcus agalactiae (B) 11/04/18 16:54 Gram Stain - Final Tissue - Other Wound Culture - Preliminary Gram positive organism 11/04/18 16:54 Gram Stain - Final Biopsy - Other Wound Culture - Preliminary No growth-Final to follow Laboratory Tests Past 24 Hrs 11/04/18 11/04/18 11/06/18 Unknown Unknown 05:30 WBC 5.6 RBC 3.51 L Hgb 10.7 L Hct 32.5 L MCV 92.6 MCH 30.5 MCHC 32.9 RDW 14.1 RDW Differential 45.8 H Plt Count 174 MPV 10.4 Sodium Potassium Chloride Carbon Dioxide Anion Gap BUN Creatinine Estim Creat Clear Calc Est GFR (MDRD) Af Amer Est GFR (MDRD) Non-Af BUN/Creatinine Ratio Glucose Calcium Phosphorus Magnesium Total Bilirubin AST ALT Alkaline Phosphatase Total Protein Albumin Globulin Albumin/Globulin Ratio Synovial Source L KNEE Synovial Color YELLOW Synovial Appearance Cloudy Synovial Viscosity Mod. Viscous Synovial WBC 71.7000 H Synovial RBC 0.024 H Synovial Tot Cell Ct 71.5300 H Synovial Neutrophils 91 H Synovial Lymphocytes [address] Comment Reviewed Acid Fast Stain SEE PATHOLOGY REPORT Miscellaneous Cytology SEE PATHOLOGY REPORT 11/06/18 05:30 WBC RBC Hgb Hct MCV MCH MCHC RDW RDW Differential Plt Count MPV Sodium 140 Potassium 3.4 L Chloride 104 Carbon Dioxide 27.0 Anion Gap 9 BUN 5 L Creatinine 0.52 L Estim Creat Clear Calc 41.40 Est GFR (MDRD) Af Amer 151 Est GFR (MDRD) Non-Af 125 BUN/Creatinine Ratio 9.7 L Glucose 102 Calcium 8.3 L Phosphorus 3.1 Magnesium 2.2 Total Bilirubin 0.50 AST 23 ALT 18 Alkaline Phosphatase 101 Total Protein 6.4 Albumin 2.0 L Globulin 4.4 H Albumin/Globulin Ratio 0.5 L Synovial Source Synovial Color Synovial Appearance Synovial Viscosity Synovial WBC Synovial RBC Synovial Tot Cell Ct Synovial Neutrophils Synovial Lymphocytes Synovial Path Comment Acid Fast Stain Miscellaneous Cytology Medical Necessity - Tobacco Use Smoking Status: Never smoker Assessment/Plan All Active Problems 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 Continue all pain medications as prescribed 2. Xarelto 10 mg 1 p.o. daily for postop DVT prophylaxis x15 days 3. Continue physical therapy weight-bear as tolerated with walker 4. Follow-up with Dr. Evans in 2 weeks 5. Medicine will continue to medically manage. 6. ID will direct IV antibiotic treatment 7. Awaiting placement of PICC line 8. Change dressing prior to discharge with an Ag dressing 9. Patient can shower on 11/09/2017 10. Dressing to remain in place for 10 days.
[2018-11-06] MEDS: Famotidine 20 MG Tablet PO (10:24)
[2018-11-06] MEDS: Senna/Docusate Sodium 1 Tablet 2 TABLET PO ×2 (10:24→21:28)
--- NOTE | 2018-11-06 13:20 | CASEMGMT ---
YUSUF LING received script from infectious disease and faxed to [facility] infusion clinic.
--- NOTE | 2018-11-06 13:35 | NURSING ---
called access to start picc line will call back with time
--- NOTE | 2018-11-06 13:36 | PN.ID_ITS ---
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 - Physical Exam General: Alert, Cooperative, No apparent distress Lungs: Clear to auscultation, Normal air movement Cardiovascular: Regular rate, Regular Rhythm Abdomen: Soft, Non Tender, Non-Distended Skin: No rashes Vital Signs Temp Pulse Resp BP Pulse Ox 98.1 F 88 18 111/69 97 11/06/18 08:16 11/06/18 08:16 11/06/18 08:16 11/06/18 08:16 11/06/18 08:16 Oxygen Flow Rate (L/min) 2 Oxygen Delivery Method Room Air Weight: 122.47 kg Body Mass Index (BMI) 49.4 Intake and Output for Last 24 Hours 11/04/18 11/05/18 11/06/18 23:59 23:59 23:59 Intake Total 1700 / 1700 3829 / 3829 1748 / 1748 Output Total 3250 / 3250 2900 / 2900 Balance 1700 / 1700 579 / 579 -1152 / -1152 Microbiology Past 72 Hours 11/04/18 Unknown Gram Stain - Final Fluid - Synovial (joint) Body Fluid Culture - Final Streptococcus agalactiae (B) Anaerobic Culture - Final No anaerobic bacteria isolated. 11/04/18 16:54 Gram Stain - Final Tissue - Other Wound Culture - Preliminary Streptococcus group B 11/04/18 16:54 Gram Stain - Final Tissue - Other Wound Culture - Final Streptococcus agalactiae (B) 11/04/18 16:54 Gram Stain - Final Biopsy - Other Wound Culture - Preliminary Gram positive organism Laboratory Tests Past 24 Hrs 11/04/18 11/04/18 11/06/18 Unknown Unknown 05:30 WBC 5.6 RBC 3.51 L Hgb 10.7 L Hct 32.5 L MCV 92.6 MCH 30.5 MCHC 32.9 RDW 14.1 RDW Differential 45.8 H Plt Count 174 MPV 10.4 Sodium Potassium Chloride Carbon Dioxide Anion Gap BUN Creatinine Estim Creat Clear Calc Est GFR (MDRD) Af Amer Est GFR (MDRD) Non-Af BUN/Creatinine Ratio Glucose Calcium Phosphorus Magnesium Total Bilirubin AST ALT Alkaline Phosphatase Total Protein Albumin Globulin Albumin/Globulin Ratio Synovial Path Comment Reviewed Acid Fast Stain SEE PATHOLOGY REPORT Miscellaneous Cytology SEE PATHOLOGY REPORT 11/06/18 05:30 WBC RBC Hgb Hct MCV MCH MCHC RDW RDW Differential Plt Count MPV Sodium 140 Potassium 3.4 L Chloride 104 Carbon Dioxide 27.0 Anion Gap 9 BUN 5 L Creatinine 0.52 L Estim Creat Clear Calc 41.40 Est GFR (MDRD) Af Amer 151 Est GFR (MDRD) Non-Af 125 BUN/Creatinine Ratio 9.7 L Glucose 102 Calcium 8.3 L Phosphorus 3.1 Magnesium 2.2 Total Bilirubin 0.50 AST 23 ALT 18 Alkaline Phosphatase 101 Total Protein 6.4 Albumin 2.0 L Globulin 4.4 H Albumin/Globulin Ratio 0.[address] Path Comment Acid Fast Stain Miscellaneous Cytology Medical Necessity - Tobacco Use Smoking Status: Never smoker Route of nutrition/ use of supplements: [] Nutritional Intake: [] IV Site: [] [place] Catheter: [] - Assessment/Plan Antibiotics: [] Assessment/Plan: [] GBS L knee PJI - No fever, normal wbc here. Plan is for picc and d/c home on 6 weeks of iv ceftriaxone dose at infusion center. Weekly bmp, cbc, and ESR. Will follow, d/w director case management. ID followup with me at wound center in 3-4 weeks.
[2018-11-06 16:06] VITALS: BP 109/50; PULSE 65; RESP 18; TEMP 36.7; O2SAT 98
--- NOTE | 2018-11-06 18:35 | PCM.PROGNOTE ---
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 All lab was personally reviewed. White blood cell count is still normal at 5.6. Hemoglobin is stable at 10.7 and platelets are within normal limits. Potassium is low at 3.4 and has been supplemented. The cytology report on pathology specimen sent at the time of surgery shows acute inflammation with a nonmetallic foreign body. Fungal and AFB stains were negative. Patient is sitting up in a chair talking with her when I entered the room. She does not appear to be in any acute distress. The pain medication is helpful when she gets it but she continues to have pain. She has not been taking the morphine but is taking OxyIR 10 mg about every 4-5 hours. Denies nausea. Appetite is still somewhat decreased. PICC ordered. Will go home with a PICC and come to the infusion center daily for 6 weeks of IV ceftriaxone. She denies any history of VTE. Objective: - Physical Exam General: Alert, Oriented x3, Cooperative, No apparent distress, Well developed, Well nourished, sitting in a chair with her legs elevated HEENT: Atraumatic, PERRLA, EOMI, Normocephalic Oral: Moist Mucosa, No Gingival or Mucosal Lesions/ Ulcerations Neck: No JVD, Negative Carotid Bruits Lungs: Clear to auscultation - anterior and lateral, No rhonchi, No wheeze, No rales Cardiovascular: Regular rate, Regular Rhythm, Normal S1, Normal S2, No murmurs, No rub noted, No Gallop Abdomen: Bowel Sounds Present, Soft, Non Tender, Non-Distended Extremities: No clubbing, No cyanosis, - - left leg is in a brace and wrapped with a polar ice Skin: No rashes Musculoskeletal: No Muscle Wasting, Arthritic Changes Neurological: Cranial nerves II-XII grossly intact, Neuro grossly intact Psych/Mental Status: Normal Affect, Appropriate - Physical Exam Vital Signs Temp Pulse Resp BP Pulse Ox 98.1 F 65 18 109/50 L 98 11/06/18 16:06 11/06/18 16:06 11/06/18 16:06 11/06/18 16:11/06/18 16:06 Oxygen Flow Rate (L/min) 2 Oxygen Delivery Method Room Air Weight: 270 lb 0.002 oz Body Mass Index (BMI) 49.4 Intake and Output for Last 24 Hours 11/04/18 11/05/18 11/06/18 23:59 23:59 23:59 Intake Total 1700 / 1700 3829 / 3829 2434 / 2434 Output Total 3250 / 3250 3600 / 3600 Balance 1700 / 1700 579 / 579 -1166 / -1166 Microbiology Past 72 Hours 11/05/18 10:20 Blood Culture - Preliminary Blood Culture (Wb) - Right Forearm 11/04/18 Unknown Gram Stain - Final Fluid - Synovial (joint) Body Fluid Culture - Final Streptococcus agalactiae (B) Anaerobic Culture - Final No anaerobic bacteria isolated. 11/04/18 16:54 Gram Stain - Final Tissue - Other Wound Culture - Preliminary Streptococcus group B 11/04/18 16:54 Gram Stain - Final Tissue - Other Wound Culture - Final Streptococcus agalactiae (B) 11/04/18 16:54 Gram Stain - Final Biopsy - Other Wound Culture - Preliminary Gram positive organism Laboratory Tests Past 24 Hrs 11/06/18 11/06/18 05:30 05:30 WBC 5.6 RBC 3.51 L Hgb 10.7 L Hct 32.5 L MCV 92.6 MCH 30.5 MCHC 32.9 RDW 14.1 RDW Differential 45.8 H Plt Count 174 MPV 10.4 Sodium 140 Potassium 3.4 L Chloride 104 Carbon Dioxide 27.0 Anion Gap 9 BUN 5 L Creatinine 0.52 L Estim Creat Clear Calc 41.40 Est GFR (MDRD) Af Amer 151 Est GFR (MDRD) Non-Af 125 BUN/Creatinine Ratio 9.7 L Glucose 102 Calcium 8.3 L Phosphorus 3.1 Magnesium 2.2 Total Bilirubin 0.50 AST 23 ALT 18 Alkaline Phosphatase 101 Total Protein 6.4 Albumin 2.0 L Globulin 4.4 H Albumin/Globulin Ratio 0.5 L Medical Necessity - Tobacco Use Smoking Status: Never smoker Assessment/Plan All Active Problems 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 septic arthritis left knee with hx of prior TKA - POD #1. the preliminary report is Group B strep - source of primary infection ? 2. Hyponatremia 3. Hypokalemia 4. History of breast cancer with bilateral lumpectomy in 2001 and 2007. 5. Hypothyroidism 6. GERD 7. Morbid obesity PICC today PT today and in the AM Probable DC in tomorrow after PT 6 weeks of IV Rocephin for GBS septic arthritis of the Left knee Discontinue morphine sulfate and continue OxyIR 10 mg p.o. every 4 hours PRN pain. Patient was advised not to wait until the pain gets severe before she asks for pain medication. She was also advised that taking the pain medication approximately 30 to 45 minutes prior to schedule PT will help. She will need physical therapy as an out patient to maintain flexibility in the left knee. Code Visit Inpatient E&M: 47025 Subs Hosp L2
[2018-11-06 21:26] VITALS: BP 123/64; PULSE 75; RESP 18; TEMP 37.4; O2SAT 99
[2018-11-06 21:30] VITALS: PULSE 75; RESP 18; O2SAT 99
[2018-11-06] MEDS: Ondansetron 4 MG/2 ML Vial IV (21:31)
[2018-11-07] MEDS: oxyCODONE 5 MG Tablet PO ×3 (01:33→16:09)
[2018-11-07 02:00] VITALS: BP 115/69; PULSE 69; RESP 18; TEMP 36.3; O2SAT 99
[2018-11-07 02:08] VITALS: PULSE 69
[2018-11-07] MEDS: Acetaminophen 500 MG Tablet 1000 MG PO ×2 (05:54→14:59)
[2018-11-07] MEDS: Rivaroxaban 10 MG Tablet PO (05:54)
--- NOTE | 2018-11-07 07:44 | PCM.PN.ORT ---
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 Drain pulled yesterday. Still has knee pain but overall comfortable. Vital signs have been stable patient is afebrile. Does have blood culture positive for staph epi which is not consistent with her knee cultures. Knee is group B strep agalactiae. Plan is for discharge home today on Rocephin. - Physical Exam General: Alert, Oriented x3, Cooperative Extremities: - - Left lower extremity: Dressing is clean dry and intact Sensations intact to light touch saphenous, sural, superficial peroneal, deep peroneal, and tibial distributions Motors intact EHL, DF, PF calves are soft and supple Vital Signs Temp Pulse Resp BP Pulse Ox 97.4 F L 69 18 115/69 99 11/07/18 02:00 11/07/18 02:08 11/07/18 02:00 11/07/18 02:00 11/07/18 02:00 Oxygen Flow Rate (L/min) 2 Oxygen Delivery Method CPAP Weight: 270 lb 0.002 oz Body Mass Index (BMI) 49.4 Intake and Output for Last 24 Hours 11/05/18 11/06/18 11/07/18 23:59 23:59 23:59 Intake Total 3829 / 3829 2434 / 2434 1719 / 1719 Output Total 3250 / 3250 3600 / 3600 1100 / 1100 Balance 579 / 579 -1166 / -1166 619 / 619 Microbiology Past 72 Hours 11/05/18 10:20 Bacteria Detection (PCR) - Final Blood Culture (Wb) - Right Forearm Staphylococcus epidermidis Blood Culture - Preliminary Staphylococcus epidermidis 11/04/18 Unknown Gram Stain - Final Fluid - Synovial (joint) Body Fluid Culture - Final Streptococcus agalactiae (B) Anaerobic Culture - Final No anaerobic bacteria isolated. 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 Pain control: Pain well controlled, continue all pain medications as prescribed 2. Xarelto 10 mg 1 p.o. daily for postop DVT prophylaxis x15 days, followed by 2 weeks aspirin twice daily 3. Continue physical therapy weight-bear as tolerated with walker 4. Follow-up with Dr. Evans in 2 weeks 5. Medicine will continue to medically manage. 6. ID will direct IV antibiotic treatment, currently on Rocephin 7. PICC line placed 8. Change dressing prior to discharge with an Ag dressing 9. Patient can shower once new dressing is placed 10. Dressing to remain in place for 3 days okay to remove 11/10/2018. SOR[facility] Office:
[2018-11-07 07:50] LABS: Hematocrit 33.2 % (37-47); Hemoglobin 10.8 g/dl (12.0-15.0); Mean Corp Hgb Conc 32.5 g/gl (32-36); Mean Corpuscular Hgb 30.5 pg (27.0-32.0); Mean Corpuscular Volume 93.8 fL (81-99); Mean Platelet Vol. 10.8 fl (6.2-12.0); Platelet Count 209 K/mm3 (150-450); RBC Distribution Width CV 14.3 % (11.6-14.6); RBC Distribution Width SD 47.1 fl (35.1-43.9); Red Blood Count 3.54 M/mm3 (4.2-5.4)
[2018-11-07 07:59] LABS: Scan Indicated on CBC? Y/N NO
[2018-11-07 08:00] VITALS: BP 127/68; PULSE 78; RESP 16; TEMP 36.4; O2SAT 97
[2018-11-07] MEDS: Famotidine 20 MG Tablet PO (10:08)
[2018-11-07] MEDS: Senna/Docusate Sodium 1 Tablet 2 TABLET PO (10:08)
--- NOTE | 2018-11-07 12:15 | DCINST_ITS ---
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 Call your doctor if you observe: Fever of 101 or Higher, Dizziness, Fainting spells, Chest pain, Calf discomfort, Uncontrolled pain, - - Call your PCP if severe diarrhea ( > 5 stools a day), painful sores in the mouth, painful swallowing, rash or itching. Taking a probiotic such as Lactobacillus or Kefir can help with loose stools while taking antibiotics. Additional Instructions: 1. I suggest you get grab bars installed in your bathroom. 2. for the next few days you will want to take the OXYIR pretty consistently every 4 hours. Take it about 30-60 minutes before you are going to have to increase your activity.....such as getting in the car to come to the hospital for antibiotics or having PT. Pending Tests on Discharge: none Allergies/Adverse Reactions: Allergies adhesive tape Adverse Reaction (Verified 08/26/16 09:56) Rash Medications to take at Discharge Fluticasone Propionate [Flonase Allergy Relief] 2 sprays NS DAILY PRN PRN 08/26/16 Levothyroxine [Synthroid] 150 mcg PO SUTUTHSA 08/26/16 Levothyroxine [Synthroid] 175 mcg PO MOWEFR 08/26/16 Omeprazole [Prilosec] 40 mg PO DAILY PRN PRN 08/26/16 Oxybutynin [Ditropan] 5 mg PO BID 08/26/16 Ceftriaxone 2 gm IV Q24 40 Days #40 vial 11/05/18 Acetaminophen [Tylenol] 1,000 mg PO Q8 tablet 11/07/18 Oxycodone [Oxyir] 10 mg PO Q4H PRN PRN 7 Days #80 tablet 11/07/18 Rivaroxaban [Xarelto] 10 mg PO DAILY@0600 #30 tablet 11/07/18 Senna/Docusate Sodium [Senokot-S] 2 tablet PO BID #120 tablet 11/07/18 The following prescriptions were given: Oxycodone [Oxyir] 10 mg PO Q4H PRN PRN 7 Days #80 tablet PRN Reason: Mod-Severe Pain (-03/11) Ceftriaxone 2 gm IV Q24 40 Days #40 vial Rivaroxaban [Xarelto] 10 mg PO DAILY@0600 #30 tablet Senna/Docusate Sodium [Senokot-S] 2 tablet PO BID #120 tablet Primary Care Physician: Tere Davila MD [Primary Care Provider] - Please follow up with your Primary Care Physician in: 1-2 weeks Test Results: Test results from this visit will be discussed in further detail at your follow- up appointment, if applicable. Please Follow Up With: Letha Hudson When: Friday at 1500 Please Follow Up With: Outpatient infusion clinic When: Thursday 11/09 at 13:30 Proposed Discharge Date: 11/07/18
--- NOTE | 2018-11-07 12:32 | PCM.DC.SUM ---
Discharge Date and Diagnosis - Problem List Patient Problems: Active and Suspected Problems Hypokalemia (Acute) Hyponatremia (Acute) Group B streptococcal infection (Acute) Infection of prosthetic left knee joint (Acute) Date of Admission: 11/04/18 Date of Discharge: 11/07/18 - Primary Discharge Diagnosis Active and Suspected Problems Infection of prosthetic left knee joint (Acute) Group B streptococcal infection (Acute) Hypokalemia (Acute) Hyponatremia (Acute) - Secondary Discharge Diagnosis Chronic Problems GERD (gastroesophageal reflux disease) (Chronic) Hypothyroidism (Chronic) History of breast cancer (Chronic) Morbid obesity SHEILA Hospital Course and Treatment Imaging Results: Laboratory Results - last 24 hr 11/07/18 06:37 WBC 6.0 RBC 3.54 L Hgb 10.8 L Hct 33.2 L MCV 93.8 MCH 30.5 MCHC 32.5 RDW 14.3 RDW Differential 47.1 H Plt Count 209 MPV 10.8 Microbiology 11/04/18 16:54 Tissue - Other Gram Stain - Final 11/04/18 16:54 Tissue - Other Wound Culture - Final Streptococcus agalactiae (B) 11/04/18 16:54 Tissue - Other Anaerobic Culture - Preliminary Checking for anaerobes, further studies to follow. 11/04/18 16:54 Biopsy - Other Gram Stain - Final 11/04/18 16:54 Biopsy - Other Wound Culture - Preliminary Streptococcus group B 11/04/18 16:54 Biopsy - Other Anaerobic Culture - Preliminary Checking for anaerobes, further studies to follow. 11/04/18 16:54 Tissue - Other Gram Stain - Final 11/04/18 16:54 Tissue - Other Wound Culture - Final Streptococcus agalactiae (B) 11/04/18 16:54 Tissue - Other Anaerobic Culture - Preliminary Checking for anaerobes, further studies to follow. 11/05/18 10:20 Blood Culture (Wb) - Right Forearm Bacteria Detection (PCR) - Final Staphylococcus epidermidis 11/05/18 10:20 Blood Culture (Wb) - Right Forearm Blood Culture - Preliminary Staphylococcus epidermidis 11/04/18 Unknown Fluid - Synovial (joint) Gram Stain - Final 11/04/18 Unknown Fluid - Synovial (joint) Body Fluid Culture - Final Streptococcus agalactiae (B) 11/04/18 Unknown Fluid - Synovial (joint) Anaerobic Culture - Final No anaerobic bacteria isolated. hospitalist service for medical management Operations: - - Irrigation debridement with polyethylene exchange left total knee replacement Procedures: None Summary of Care Provided: The patient is a 68 year old F with a past medical history of hypothyroidism, GERD, obstructive sleep apnea, history of breast cancer with lumpectomy in 2001 in 2007, osteoarthritis and morbid obesity who fell a few weeks prior to admission to [facility] and went to the [facility] office for swelling, pain and redness of the left knee on 11/04/18. She had a Left TKA In August [address] Anthony Samson. Lab at admission showed a normal white blood cell count of 9.0 with 88% neutrophils. Hemoglobin and platelets were within normal limits. The sodium was mildly decreased at 133. ESR was 87 and the C-reactive protein was markedly elevated at 264. The synovial fluid had 71,700 WBCs and 24 RBCs. There were 91% neutrophils and the synovial fluid contained a nonmetallic foreign body. She was taken to the OR by Dr. Dewey on 11/04 for irrigation debridement with polyethylene exchange left total knee replacement. Cultures of the synovial fluid grew group B streptococcus. Patient was seen in consult by Dr. Crawford who recommended PICC line placement for 6 weeks of IV ceftriaxone 2 g daily. PICC line was inserted on 11/07/2018 and the patient was discharged home with a prescription for OxyIR for pain relief and Rocephin 2 g IV daily x40 doses. She will receive her medication in the infusion center at [facility]. She will get a weekly CBC, BMP and ESR while on antibiotics. Results will be faxed to Dr. Crawford. She needs follow-up in the wound care center with Dr. Crawford in 3 to 4 weeks. She has an appointment Friday at 3 PM at [facility]. She has an appointment Friday at 1:30 PM for the infusion center. She will come to the hospital on 11/08/2018 to receive IV antibiotics on MedSurg 3. - Physical Exam General: Alert, Oriented x3, Cooperative, No apparent distress, Well developed, Well nourished HEENT: Atraumatic, PERRLA, EOMI, Normocephalic Oral: Moist Mucosa, No Gingival or Mucosal Lesions/ Ulcerations Neck: No JVD, Negative Carotid Bruits Lungs: Clear to auscultation - anterior and lateral, No rhonchi, No wheeze, No rales Cardiovascular: Regular rate, Regular Rhythm, Normal S1, Normal S2, No murmurs, No rub noted, No Gallop Abdomen: Bowel Sounds Present, Soft, Non Tender, Non-Distended Extremities: No clubbing, No cyanosis, dressing is clean, dry and intact. Patient has intact sensation to light touch in all areas of the left lower extremity. Foot is warm and she has intact motor sensation. The drain was pulled on 11/06/2018. Skin: No rashes Musculoskeletal: No Muscle Wasting, Arthritic Changes Neurological: Cranial nerves II-XII grossly intact, Neuro grossly intact Psych/Mental Status: Normal Affect, Appropriate This note was generated with [employer] dictation software. It may contain incorrect words, spelling, and punctuation that were not noted in checking the note before signing. Patient Problems: Active and Suspected Problems Hypokalemia (Acute) Hyponatremia (Acute) Group B streptococcal infection (Acute) Infection of prosthetic left knee joint (Acute) - Physical Exam Vital Signs Temp Pulse Resp BP Pulse Ox 97.6 F L 78 16 127/68 H 97 11/07/18 08:00 11/07/18 08:00 11/07/18 08:00 11/07/18 08:00 11/07/18 08:00 Oxygen Flow Rate (L/min) 2 Oxygen Delivery Method Room Air Weight: 270 lb 0.002 oz Body Mass Index (BMI) 49.4 Intake and Output for Last 24 Hours 11/05/18 11/06/18 11/07/18 23:59 23:59 23:59 Intake Total 3829 / 3829 2434 / 2434 1719 / 1719 Output Total 3250 / 3250 3600 / 3600 1100 / 1100 Balance 579 / 579 -1166 / -1166 619 / 619 Microbiology Past 72 Hours 11/04/18 16:54 Gram Stain - Final Tissue - Other Wound Culture - Final Streptococcus agalactiae (B) Anaerobic Culture - Preliminary Checking for anaerobes, further studies to follow. 11/04/18 16:54 Gram Stain - Final Biopsy - Other Wound Culture - Preliminary Streptococcus group B Anaerobic Culture - Preliminary Checking for anaerobes, further studies to follow. 11/04/18 16:54 Gram Stain - Final Tissue - Other Wound Culture - Final Streptococcus agalactiae (B) Anaerobic Culture - Preliminary Checking for anaerobes, further studies to follow. 11/05/18 10:20 Bacteria Detection (PCR) - Final Blood Culture (Wb) - Right Forearm Staphylococcus epidermidis Blood Culture - Preliminary Staphylococcus epidermidis 11/04/18 Unknown Gram Stain - Final Fluid - Synovial (joint) Body Fluid Culture - Final Streptococcus agalactiae (B) Anaerobic Culture - Final No anaerobic bacteria isolated. Laboratory Tests Past 24 Hrs 11/07/18 06:37 WBC 6.0 RBC 3.54 L Hgb 10.8 L Hct 33.2 L MCV 93.8 MCH 30.5 MCHC 32.5 RDW 14.3 RDW Differential 47.1 H Plt Count 209 MPV 10.8 Discharge Activity: May Shower May shower in (days): 2 Call your doctor if your incision/area has: Continuous Slow Oozing, Sudden Increased Bleeding, Increased Pain/ Swelling, Increased Redness, Foul Smelling Discharge, - - the dressing applied at discharge will stay on for 10 days. Call your doctor if you observe: Fever of 101 or Higher, Dizziness, Fainting spells, Chest pain, Calf discomfort, Uncontrolled pain, - - Call your PCP if severe diarrhea ( > 5 stools a day), painful sores in the mouth, painful swallowing, rash or itching. Taking a probiotic such as Lactobacillus or Kefir can help with loose stools while taking antibiotics. Home Medications: Medications to take at Discharge Fluticasone Propionate [Flonase Allergy Relief] 2 sprays NS DAILY PRN PRN 08/26/16 Levothyroxine [Synthroid] 150 mcg PO SUTUTHSA 08/26/16 Levothyroxine [Synthroid] 175 mcg PO MOWEFR 08/26/16 Omeprazole [Prilosec] 40 mg PO DAILY PRN PRN 08/26/16 Oxybutynin [Ditropan] 5 mg PO BID 08/26/16 Ceftriaxone 2 gm IV Q24 40 Days #40 vial 11/05/18 Acetaminophen [Tylenol] 1,000 mg PO Q8 tablet 11/07/18 Oxycodone [Oxyir] 10 mg PO Q4H PRN PRN 7 Days #80 tablet 11/07/18 Rivaroxaban [Xarelto] 10 mg PO DAILY@0600 #30 tablet 11/07/18 Senna/Docusate Sodium [Senokot-S] 2 tablet PO BID #120 tablet 11/07/18 Following Prescrptions Were Given to Patient: Oxycodone [Oxyir] 10 mg PO Q4H PRN PRN 7 Days #80 tablet PRN Reason: Mod-Severe Pain (-03/11) Ceftriaxone 2 gm IV Q24 40 Days #40 vial Rivaroxaban [Xarelto] 10 mg PO DAILY@0600 #30 tablet Senna/Docusate Sodium [Senokot-S] 2 tablet PO BID #120 tablet Primary Care Physician: Tere Davila MD [Primary Care Provider] - Please follow up with your Primary Care Physician in: 1-2 weeks Please Follow Up With: [facility] When: Friday at 1500 Please Follow Up With: Outpatient infusion clinic When: Thursday 11/09 at 13:30 Minutes spent on discharge:: 35 Patient Condition:: Good Medical Necessity - Tobacco Use Smoking Status: Never smoker Tobacco Use: Non-smoker Meaningful Use Info Meaningful Use Diagnoses (Choose all that apply): None applicable Code Visit Inpatient E&M: 04564 Disch Hosp
--- NOTE | 2018-11-07 13:36 | NURSING ---
silver dressing to knee changed and site of drain removal changed as well. Tegaderm dressing placed over drain site and AG dressing placed over knee per Dr. Dewey's request prior to d/c. Pt tolerated well
--- NOTE | 2018-11-07 14:26 | NURSING ---
PICC line insertion in progress-
--- NOTE | 2018-11-07 14:33 | RAD_ITS ---
STUDY: X-RAY CHEST REASON FOR EXAM: Female, 68 years old. PICC insertion TECHNIQUE: AP COMPARISON: None. FINDINGS: Left arm PICC is identified with tip extending to the lower SVC. The lungs are clear and expanded. There is no demonstrated pleural abnormality. Normal size heart. Normal mediastinum and cesilia. Normal visualized pulmonary arteries. Normal visualized aortic arch and descending thoracic aorta. Normal visualized thoracic spine. Normal visualized ribs, clavicles, and shoulders. There is no demonstrated abnormality of the visualized soft tissue structures of the upper abdomen. RAD/CXR for Line Placement IMPRESSION: Left arm PICC in satisfactory position. No airspace consolidation. Electronically Signed: Zak Chaparro MD at 15:34 EDT , Service support ,
[2018-11-07 15:06] VITALS: BP 135/78; PULSE 79; RESP 18; TEMP 36.9; O2SAT 97
== END 2018-11-07 16:14 | disposition home or self-care (01) | DRG 486 ==
LOC: ACINP 12:07 → MS3 17:20
PROVIDERS: Internal Medicine; Admitting Provider Specialist; Family Provider Internal Medicine; PCP Internal Medicine; Referring Provider Specialist; Visit Provider Specialist
PROC: 0SPD09Z Removal of Liner from Left Knee Joint, Open Approach (ICD-10-PCS; CPT 27301; principal; 2018-11-04 13:10)
DX: T84.54XA Infection and inflammatory reaction due to internal left knee prosthesis, initial encounter (principal); Z68.42 Body mass index [BMI] 45.0-49.9, adult; M00.262 Other streptococcal arthritis, left knee; E87.1 Hypo-osmolality and hyponatremia; Y83.1 Surgical operation with implant of artificial internal device as the cause of abnormal reaction of the patient, or of later complication, without mention of misadventure at the time of the procedure; E66.01 Morbid (severe) obesity due to excess calories; K21.9 Gastro-esophageal reflux disease without esophagitis; E03.9 Hypothyroidism, unspecified; E87.6 Hypokalemia; B95.1 Streptococcus, group B, as the cause of diseases classified elsewhere; Z96.652 Presence of left artificial knee joint; Z85.3 Personal history of malignant neoplasm of breast
CPT/HCPCS: 36415; 36569; 71045; 80048; 80053; 83735; 84100; 85025; 85027; 85652; 86140; 87015; 87040; 87070; 87075; 87077; 87101; 87102; 87116; 87149; 87176; 87186; 87205; 87206; 88108; 88300; 88305; 88312; 88313; 89050; 89051; 97110; 97161; 97166; 97530; 97535; 99251; C1776; J7120; A4216; G0463; J0696; J2405

== ENCOUNTER 2018-11-08 10:11 | Outpatient (CLI) | payer MEDICARE, OTHER, SELFPAY ==
[2018-11-04 18:30] VITALS: BMI 49.4
[2018-11-08] MEDS: Ceftriaxone 2 GM in 0.9% NS 50 ML Minibag x1 IV (10:41)
[2018-11-08 10:44] VITALS: BP 129/59; PULSE 65; RESP 18; TEMP 37.1; O2SAT 100; BMI 49.4
[2018-11-08] MEDS: 0.9% NaCl VAD Flush 10 ML IV (11:26)
== END 2018-11-08 11:25 | disposition home or self-care (01) ==
LOC: MEDOUTP 10:13 → MS3 10:13
PROVIDERS: Family Provider Internal Medicine; PCP Internal Medicine; Visit Provider Internal Medicine Infectious Disease
DX: T84.54XA Infection and inflammatory reaction due to internal left knee prosthesis, initial encounter (principal)
CPT/HCPCS: 96365; A4216; J0696

== ENCOUNTER → 2018-11-09 13:30 | Outpatient (CLI) | payer MEDICARE, OTHER, SELFPAY ==
[2018-11-08 10:44] VITALS: BMI 49.4
[2018-11-09 13:46] VITALS: BP 143/79; PULSE 86; RESP 16; TEMP 36.4; O2SAT 97; BMI 49.4
[2018-11-09] MEDS: Ceftriaxone 2 GM in 0.9% NS 50 ML Minibag x1 IV (14:09)
== END ==
PROVIDERS: Family Provider Internal Medicine; PCP Internal Medicine; Referring Provider Internal Medicine Infectious Disease; Visit Provider Internal Medicine Infectious Disease
DX: T84.54XA Infection and inflammatory reaction due to internal left knee prosthesis, initial encounter (principal)
CPT/HCPCS: 96365; J7050; A4216; J0696

== ENCOUNTER → 2018-11-10 14:29 | Outpatient (CLI) | payer MEDICARE, OTHER, SELFPAY ==
[2018-11-09 13:46] VITALS: BMI 49.4
[2018-11-10 14:40] VITALS: BP 133/49; PULSE 87; RESP 18; TEMP 36.8; O2SAT 93
[2018-11-10] MEDS: Ceftriaxone 2 GM in 0.9% NS 50 ML Minibag x1 IV (14:43)
== END ==
PROVIDERS: Family Provider Internal Medicine; PCP Internal Medicine; Referring Provider Internal Medicine Infectious Disease; Visit Provider Internal Medicine Infectious Disease
DX: T84.54XA Infection and inflammatory reaction due to internal left knee prosthesis, initial encounter (principal)
CPT/HCPCS: 96365; J7050; A4216; J0696

== ENCOUNTER → 2018-11-11 14:12 | Outpatient (CLI) | payer MEDICARE, OTHER, SELFPAY ==
[2018-11-09 13:46] VITALS: BMI 49.4
[2018-11-11 14:29] VITALS: BP 145/81; PULSE 76; RESP 16; TEMP 37.1; O2SAT 97; BMI 49.4
[2018-11-11] MEDS: Ceftriaxone 2 GM in 0.9% NS 50 ML Minibag x1 IV (14:29)
== END ==
PROVIDERS: Family Provider Internal Medicine; PCP Internal Medicine; Referring Provider Internal Medicine Infectious Disease; Visit Provider Internal Medicine Infectious Disease
DX: T84.54XA Infection and inflammatory reaction due to internal left knee prosthesis, initial encounter (principal)
CPT/HCPCS: 96365; J7050; A4216; J0696

== ENCOUNTER → 2018-11-12 14:20 | Outpatient (CLI) | payer MEDICARE, OTHER, SELFPAY ==
[2018-11-09 13:46] VITALS: BMI 49.4
[2018-11-11 14:29] VITALS: BMI 49.4
[2018-11-12] MEDS: Ceftriaxone 2 GM in 0.9% NS 50 ML Minibag x1 IV (14:33)
[2018-11-12 14:37] VITALS: BP 126/82; PULSE 72; RESP 16; TEMP 36.6; O2SAT 97; BMI 48.4
== END ==
PROVIDERS: Family Provider Internal Medicine; PCP Internal Medicine; Referring Provider Internal Medicine Infectious Disease; Visit Provider Internal Medicine Infectious Disease
DX: T84.54XA Infection and inflammatory reaction due to internal left knee prosthesis, initial encounter (principal)
CPT/HCPCS: 96365; J7050; A4216; J0696

== ENCOUNTER → 2018-11-13 14:25 | Outpatient (CLI) | payer MEDICARE, OTHER, SELFPAY ==
[2018-11-09 13:46] VITALS: BMI 49.4
[2018-11-12 14:37] VITALS: BMI 48.4
[2018-11-13 14:45] VITALS: BP 164/93; PULSE 79; RESP 16; TEMP 37.2; O2SAT 96; BMI 48.4
[2018-11-13] MEDS: Ceftriaxone 2 GM in 0.9% NS 50 ML Minibag x1 IV (14:55)
[2018-11-13 15:09] LABS: Hematocrit 34.3 % (37-47); Mean Corp Hgb Conc 32.1 g/gl (32-36); Mean Corpuscular Hgb 30.3 pg (27.0-32.0); Mean Corpuscular Volume 94.5 fL (81-99); Mean Platelet Vol. 9.4 fl (6.2-12.0); Platelet Count 399 K/mm3 (150-450); RBC Distribution Width CV 14.6 % (11.6-14.6); RBC Distribution Width SD 50.2 fl (35.1-43.9); Red Blood Count 3.63 M/mm3 (4.2-5.4); Scan Indicated on CBC? Y/N NO; White Blood Count 8.5 K/mm3 (4.4-11.0)
[2018-11-13 15:17] LABS: Anion Gap 4 (5-15); BUN 8 mg/dL (7-18); BUN/Creat Ratio 12.5 RATIO (10-20); Calcium,Total 8.5 mg/dL (8.5-10.1); Chloride 105 mmol/L (98-107); Creatinine, Serum 0.64 mg/dL (0.55-1.02); EST Glomerular Filtration Rate 97 mL/min (>60); Est Glom Filt Rate - Afr Amer 118 mL/min (>60); Glucose 96 mg/dL (74-106); Sodium Level 135 mmol/L (136-145)
[2018-11-13 15:21] LABS: Erythrocyte Sedimentation Rate 53 mm/hr (0-30)
== END ==
PROVIDERS: Family Provider Internal Medicine; PCP Internal Medicine; Referring Provider Internal Medicine Infectious Disease; Visit Provider Internal Medicine Infectious Disease
DX: T84.54XA Infection and inflammatory reaction due to internal left knee prosthesis, initial encounter (principal)
CPT/HCPCS: 96365; 36592; 80048; 85027; 85652; J7050; A4216; J0696

== ENCOUNTER 2018-11-14 09:54 | Outpatient (CLI) | payer MEDICARE, OTHER, SELFPAY ==
[2018-11-09 13:46] VITALS: BMI 49.4
[2018-11-13 14:45] VITALS: BMI 48.4
[2018-11-14 10:10] VITALS: BP 133/54; PULSE 73; RESP 16; TEMP 36.7; O2SAT 97
== END 2018-11-14 10:57 | disposition home or self-care (01) ==
LOC: MEDOUTP 09:55 → PCU 09:55
PROVIDERS: Family Provider Internal Medicine; PCP Internal Medicine; Referring Provider Internal Medicine Infectious Disease; Visit Provider Internal Medicine Infectious Disease
DX: T84.54XA Infection and inflammatory reaction due to internal left knee prosthesis, initial encounter (principal)
CPT/HCPCS: 96365; J7040; J0696

== ENCOUNTER 2018-11-15 10:00 | Outpatient (CLI) | payer MEDICARE, OTHER, SELFPAY ==
[2018-11-09 13:46] VITALS: BMI 49.4
[2018-11-13 14:45] VITALS: BMI 48.4
[2018-11-15 10:07] VITALS: BP 121/48; PULSE 77; RESP 16; TEMP 36.6; O2SAT 92
== END 2018-11-15 10:52 | disposition home or self-care (01) ==
LOC: MEDOUTP 10:00 → MS3 10:01
PROVIDERS: Family Provider Internal Medicine; PCP Internal Medicine; Referring Provider Internal Medicine Infectious Disease; Visit Provider Internal Medicine Infectious Disease
DX: T84.54XA Infection and inflammatory reaction due to internal left knee prosthesis, initial encounter (principal)
CPT/HCPCS: 96365; J0696

== ENCOUNTER → 2018-11-16 11:56 | Outpatient (CLI) | payer MEDICARE, OTHER, SELFPAY ==
[2018-11-09 13:46] VITALS: BMI 49.4
[2018-11-13 14:45] VITALS: BMI 48.4
[2018-11-16] MEDS: Ceftriaxone 2 GM in 0.9% NS 50 ML Minibag x1 IV (12:08)
[2018-11-16 12:09] VITALS: BP 156/75; PULSE 88; RESP 16; TEMP 36.9; O2SAT 97; BMI 48.4
== END ==
PROVIDERS: Family Provider Internal Medicine; PCP Internal Medicine; Referring Provider Internal Medicine Infectious Disease; Visit Provider Internal Medicine Infectious Disease
DX: T84.54XA Infection and inflammatory reaction due to internal left knee prosthesis, initial encounter (principal)
CPT/HCPCS: 96365; A4216; J0696

== ENCOUNTER → 2018-11-17 14:19 | Outpatient (CLI) | payer MEDICARE, OTHER, SELFPAY ==
[2018-11-09 13:46] VITALS: BMI 49.4
[2018-11-16 12:09] VITALS: BMI 48.4
[2018-11-17 14:35] VITALS: BP 123/54; PULSE 75; RESP 16; TEMP 36.8; O2SAT 97; BMI 49.4
[2018-11-17] MEDS: Ceftriaxone 2 GM in 0.9% NS 50 ML Minibag x1 IV (14:40)
== END ==
PROVIDERS: Family Provider Internal Medicine; PCP Internal Medicine; Referring Provider Internal Medicine Infectious Disease; Visit Provider Internal Medicine Infectious Disease
DX: T84.54XA Infection and inflammatory reaction due to internal left knee prosthesis, initial encounter (principal)
CPT/HCPCS: 96365; J7050; A4216; J0696

== ENCOUNTER → 2018-11-18 14:19 | Outpatient (CLI) | payer MEDICARE, OTHER, SELFPAY ==
[2018-11-09 13:46] VITALS: BMI 49.4
[2018-11-17 14:35] VITALS: BMI 49.4
[2018-11-18] MEDS: Ceftriaxone 2 GM in 0.9% NS 50 ML Minibag x1 IV (14:43)
[2018-11-18 14:44] VITALS: BP 150/65; PULSE 75; RESP 16; TEMP 36.6; O2SAT 98; BMI 49.4
== END ==
PROVIDERS: Family Provider Internal Medicine; PCP Internal Medicine; Referring Provider Internal Medicine Infectious Disease; Visit Provider Internal Medicine Infectious Disease
DX: T84.54XA Infection and inflammatory reaction due to internal left knee prosthesis, initial encounter (principal)
CPT/HCPCS: 96365; J7050; A4216; J0696

== ENCOUNTER → 2018-11-19 | Outpatient (CLI) | payer MEDICARE, OTHER, SELFPAY ==
[2018-11-09 13:46] VITALS: BMI 49.4
[2018-11-18 14:44] VITALS: BMI 49.4
[2018-11-19 14:31] VITALS: BP 123/84; RESP 16; TEMP 36.8; O2SAT 96; BMI 49.4
[2018-11-19] MEDS: Ceftriaxone 2 GM in 0.9% NS 50 ML Minibag x1 IV (14:31)
== END | disposition home or self-care (01) ==
LOC: MEDOUTP 14:18
PROVIDERS: Family Provider Internal Medicine; PCP Internal Medicine; Referring Provider Internal Medicine Infectious Disease; Visit Provider Internal Medicine Infectious Disease
DX: T84.54XA Infection and inflammatory reaction due to internal left knee prosthesis, initial encounter (principal)
CPT/HCPCS: 96365; J7050; A4216; J0696

== ENCOUNTER → 2018-11-20 14:25 | Outpatient (CLI) | payer MEDICARE, OTHER, SELFPAY ==
[2018-11-09 13:46] VITALS: BMI 49.4
[2018-11-19 14:31] VITALS: BMI 49.4
[2018-11-20] MEDS: Ceftriaxone 2 GM in 0.9% NS 50 ML Minibag x1 IV (14:51)
[2018-11-20 14:53] VITALS: BP 122/65; PULSE 76; RESP 16; TEMP 36.6; O2SAT 96; BMI 49.4
[2018-11-20 14:57] LABS: Erythrocyte Sedimentation Rate 74 mm/hr (0-30)
[2018-11-20 15:00] LABS: Absolute Lymphocyte Count 1.92 X10^3/ul (0.83-4.51); Absolute Neutrophil Count 4.4 X10^3/uL (2.0-7.7); Basophil# 0.04 X10^3/uL; Basophil% 0.6 % (0-1); Eosinophil# 0.21 X10^3/uL; Hematocrit 35.2 % (37-47); Hemoglobin 11.4 g/dl (12.0-15.0); Lymphocyte # 1.92 X10^3/ul (4.0); Lymphocyte % 27.9 % (19-41); Mean Corp Hgb Conc 32.4 g/gl (32-36); Mean Corpuscular Hgb 30.4 pg (27.0-32.0); Mean Corpuscular Volume 93.9 fL (81-99); Mean Platelet Vol. 9.3 fl (6.2-12.0); Monocyte# 0.36 X10^3/uL; Monocyte% 5.2 % (0-10); Neutrophil # 4.35 X10^3/uL (2.7-7.7); Neutrophil % 63.2 % (47-70); Platelet Count 376 K/mm3 (150-450); RBC Distribution Width CV 14.6 % (11.6-14.6); RBC Distribution Width SD 49.4 fl (35.1-43.9); Red Blood Count 3.75 M/mm3 (4.2-5.4); White Blood Count 6.9 K/mm3 (4.4-11.0)
[2018-11-20 15:01] LABS: POSITIVE COUNT NO; POSITIVE DIFFERENTIAL NO; POSITIVE MORPHOLOGY NO
[2018-11-20 15:04] LABS: Anion Gap 5 (5-15); BUN 10 mg/dL (7-18); BUN/Creat Ratio 15.8 RATIO (10-20); Calcium,Total 8.9 mg/dL (8.5-10.1); Chloride 107 mmol/L (98-107); Creatinine, Serum 0.63 mg/dL (0.55-1.02); EST Glomerular Filtration Rate 98 mL/min (>60); Est Glom Filt Rate - Afr Amer 119 mL/min (>60); Glucose 102 mg/dL (74-106); Potassium 3.7 mmol/L (3.5-5.1); Sodium Level 138 mmol/L (136-145)
== END ==
PROVIDERS: Family Provider Internal Medicine; PCP Internal Medicine; Referring Provider Internal Medicine Infectious Disease; Visit Provider Internal Medicine Infectious Disease
DX: T84.54XA Infection and inflammatory reaction due to internal left knee prosthesis, initial encounter (principal)
CPT/HCPCS: 96365; 36592; 80048; 85025; 85652; J0696

== ENCOUNTER 2018-11-21 14:25 | Outpatient (CLI) | payer MEDICARE, OTHER, SELFPAY ==
[2018-11-09 13:46] VITALS: BMI 49.4
[2018-11-19 14:31] VITALS: BMI 49.4
[2018-11-20 14:53] VITALS: BMI 49.4
[2018-11-21 14:45] VITALS: BP 135/58; PULSE 65; RESP 18; TEMP 36.2; O2SAT 97
[2018-11-21] MEDS: 0.9% NaCl PICC Flush IV ×2 (15:00→16:01)
[2018-11-21 15:58] VITALS: BP 136/68; PULSE 67; RESP 17; TEMP 36.6; O2SAT 99
== END 2018-11-21 16:00 | disposition home or self-care (01) ==
LOC: MEDOUTP 14:28 → ICU 14:30
PROVIDERS: Family Provider Internal Medicine; PCP Internal Medicine; Referring Provider Internal Medicine Infectious Disease; Visit Provider Internal Medicine Infectious Disease
DX: T84.54XA Infection and inflammatory reaction due to internal left knee prosthesis, initial encounter (principal)
CPT/HCPCS: 96365; A4216; J0696

== ENCOUNTER → 2018-11-22 14:21 | Outpatient (CLI) | payer MEDICARE, OTHER, SELFPAY ==
[2018-11-09 13:46] VITALS: BMI 49.4
[2018-11-19 14:31] VITALS: BMI 49.4
[2018-11-20 14:53] VITALS: BMI 49.4
[2018-11-22] MEDS: 0.9% NaCl PICC Flush IV ×2 (14:52→15:43)
[2018-11-22 15:00] VITALS: BP 121/66; PULSE 80; RESP 20; TEMP 36.6; O2SAT 98
== END ==
PROVIDERS: Family Provider Internal Medicine; PCP Internal Medicine; Visit Provider Internal Medicine Infectious Disease
DX: T84.54XA Infection and inflammatory reaction due to internal left knee prosthesis, initial encounter (principal)
CPT/HCPCS: 96365; A4216; J0696

== ENCOUNTER → 2018-11-23 14:24 | Outpatient (CLI) | payer MEDICARE, OTHER, SELFPAY ==
[2018-11-09 13:46] VITALS: BMI 49.4
[2018-11-20 14:53] VITALS: BMI 49.4
[2018-11-23 14:30] VITALS: BP 147/67; PULSE 72; RESP 16; TEMP 36.2; O2SAT 96; BMI 49.4
[2018-11-23] MEDS: Ceftriaxone 2 GM in 0.9% NS 50 ML Minibag x1 IV (14:44)
== END ==
PROVIDERS: Family Provider Internal Medicine; PCP Internal Medicine; Referring Provider Internal Medicine Infectious Disease; Visit Provider Internal Medicine Infectious Disease
DX: T84.54XA Infection and inflammatory reaction due to internal left knee prosthesis, initial encounter (principal)
CPT/HCPCS: 96365; J7050; A4216; J0696

== ENCOUNTER → 2018-11-24 14:18 | Outpatient (CLI) | payer MEDICARE, OTHER, SELFPAY ==
[2018-11-09 13:46] VITALS: BMI 49.4
[2018-11-23 14:30] VITALS: BMI 49.4
[2018-11-24 14:40] VITALS: BP 136/86; PULSE 80; RESP 16; TEMP 36.8; O2SAT 95; BMI 49.4
[2018-11-24] MEDS: Ceftriaxone 2 GM in 0.9% NS 50 ML Minibag x1 IV (14:44)
== END ==
PROVIDERS: Family Provider Internal Medicine; PCP Internal Medicine; Referring Provider Internal Medicine Infectious Disease; Visit Provider Internal Medicine Infectious Disease
DX: T84.54XA Infection and inflammatory reaction due to internal left knee prosthesis, initial encounter (principal)
CPT/HCPCS: 96365; A4216; J0696

== ENCOUNTER → 2018-11-25 14:23 | Outpatient (CLI) | payer MEDICARE, OTHER, SELFPAY ==
[2018-11-09 13:46] VITALS: BMI 49.4
[2018-11-24 14:40] VITALS: BMI 49.4
[2018-11-25] MEDS: Ceftriaxone 2 GM in 0.9% NS 50 ML Minibag x1 IV (14:34)
[2018-11-25 14:40] VITALS: BMI 49.4
== END ==
PROVIDERS: Family Provider Internal Medicine; PCP Internal Medicine; Referring Provider Internal Medicine Infectious Disease; Visit Provider Internal Medicine Infectious Disease
DX: T84.54XA Infection and inflammatory reaction due to internal left knee prosthesis, initial encounter (principal)
CPT/HCPCS: 96365; J7050; J0696

== ENCOUNTER → 2018-11-26 14:20 | Outpatient (CLI) | payer MEDICARE, OTHER, SELFPAY ==
[2018-11-09 13:46] VITALS: BMI 49.4
[2018-11-25 14:40] VITALS: BMI 49.4
[2018-11-26] MEDS: Ceftriaxone 2 GM in 0.9% NS 50 ML Minibag x1 IV (14:34)
[2018-11-26 14:37] VITALS: BP 122/67; PULSE 68; RESP 16; TEMP 37.1; O2SAT 98; BMI 48.4
== END ==
PROVIDERS: Family Provider Internal Medicine; PCP Internal Medicine; Referring Provider Internal Medicine Infectious Disease; Visit Provider Internal Medicine Infectious Disease
DX: T84.54XA Infection and inflammatory reaction due to internal left knee prosthesis, initial encounter (principal)
CPT/HCPCS: 96365; J7050; A4216; J0696

== ENCOUNTER → 2018-11-27 14:20 | Outpatient (CLI) | payer MEDICARE, OTHER, SELFPAY ==
[2018-11-09 13:46] VITALS: BMI 49.4
[2018-11-26 14:37] VITALS: BMI 48.4
[2018-11-27 14:34] VITALS: BP 121/78; PULSE 83; RESP 16; TEMP 36.3; O2SAT 95; BMI 48.4
[2018-11-27] MEDS: Ceftriaxone 2 GM in 0.9% NS 50 ML Minibag x1 IV (14:46)
[2018-11-27 14:51] LABS: Erythrocyte Sedimentation Rate 86 mm/hr (0-30)
[2018-11-27 14:53] LABS: Hematocrit 34.3 % (37-47); Mean Corp Hgb Conc 32.1 g/gl (32-36); Mean Corpuscular Hgb 30.1 pg (27.0-32.0); Mean Platelet Vol. 9.8 fl (6.2-12.0); Platelet Count 222 K/mm3 (150-450); RBC Distribution Width CV 14.4 % (11.6-14.6); RBC Distribution Width SD 49.1 fl (35.1-43.9); Red Blood Count 3.65 M/mm3 (4.2-5.4); Scan Indicated on CBC? Y/N NO; White Blood Count 5.2 K/mm3 (4.4-11.0)
[2018-11-27 15:01] LABS: Anion Gap 6 (5-15); BUN 14 mg/dL (7-18); BUN/Creat Ratio 21.9 RATIO (10-20); Calcium,Total 8.7 mg/dL (8.5-10.1); Chloride 109 mmol/L (98-107); Creatinine, Serum 0.64 mg/dL (0.55-1.02); EST Glomerular Filtration Rate 97 mL/min (>60); Est Glom Filt Rate - Afr Amer 118 mL/min (>60); Glucose 104 mg/dL (74-106); Potassium 3.7 mmol/L (3.5-5.1); Sodium Level 139 mmol/L (136-145)
== END ==
PROVIDERS: Family Provider Internal Medicine; PCP Internal Medicine; Referring Provider Internal Medicine Infectious Disease; Visit Provider Internal Medicine Infectious Disease
DX: T84.54XA Infection and inflammatory reaction due to internal left knee prosthesis, initial encounter (principal)
CPT/HCPCS: 96365; 36592; 80048; 85027; 85652; J7040; A4216; J0696

== ENCOUNTER 2018-11-28 14:45 | Outpatient (CLI) | payer MEDICARE, OTHER, SELFPAY ==
[2018-11-11 14:29] VITALS: BMI 49.4
[2018-11-27 14:34] VITALS: BMI 48.4
[2018-11-28] MEDS: 0.9% NaCl IVPB Med Flush (250 mL) 15 ML IV (14:39)
[2018-11-28] MEDS: Ceftriaxone 2 GM in 0.9% NS 50 ML Minibag x1 IV (14:49)
[2018-11-28 14:50] VITALS: BP 121/67; PULSE 71; RESP 18; TEMP 36.4; O2SAT 98
[2018-11-28] MEDS: 0.9% NaCl PICC Flush IV ×2 (15:32→15:38)
== END 2018-11-28 15:47 | disposition home or self-care (01) ==
LOC: MEDOUTP 14:46 → MS3 14:47
PROVIDERS: Family Provider Internal Medicine; PCP Internal Medicine; Visit Provider Internal Medicine Infectious Disease
DX: T84.54XA Infection and inflammatory reaction due to internal left knee prosthesis, initial encounter (principal)
CPT/HCPCS: 96365; J7050; A4216; J0696

== ENCOUNTER 2018-11-29 13:30 | Outpatient (CLI) | payer MEDICARE, OTHER, SELFPAY ==
[2018-11-11 14:29] VITALS: BMI 49.4
[2018-11-27 14:34] VITALS: BMI 48.4
[2018-11-29 14:20] VITALS: BP 123/70; PULSE 76; RESP 18; TEMP 36.8; O2SAT 99
[2018-11-29] MEDS: 0.9% NaCl IVPB Med Flush (250 mL) 15 ML IV (14:39)
[2018-11-29] MEDS: Ceftriaxone 2 GM in 0.9% NS 50 ML Minibag x1 IV (14:39)
[2018-11-29 15:30] VITALS: BP 110/50; PULSE 68; RESP 18; O2SAT 97
== END 2018-11-29 15:45 | disposition home or self-care (01) ==
LOC: MEDOUTP 13:31 → MS3 13:32
PROVIDERS: Family Provider Internal Medicine; PCP Internal Medicine; Visit Provider Internal Medicine Infectious Disease
DX: T84.54XA Infection and inflammatory reaction due to internal left knee prosthesis, initial encounter (principal)
CPT/HCPCS: 96365; J7050; J0696

== ENCOUNTER → 2018-11-30 14:24 | Outpatient (CLI) | payer MEDICARE, OTHER, SELFPAY ==
[2018-11-11 14:29] VITALS: BMI 49.4
[2018-11-27 14:34] VITALS: BMI 48.4
[2018-11-30] MEDS: Ceftriaxone 2 GM in 0.9% NS 50 ML Minibag x1 IV (14:46)
[2018-11-30 14:48] VITALS: BP 108/74; PULSE 74; RESP 16; TEMP 36.3; O2SAT 98; BMI 45.4
== END ==
PROVIDERS: Family Provider Internal Medicine; PCP Internal Medicine; Referring Provider Internal Medicine Infectious Disease; Visit Provider Internal Medicine Infectious Disease
DX: T84.54XA Infection and inflammatory reaction due to internal left knee prosthesis, initial encounter (principal)
CPT/HCPCS: 96365; J7040; A4216; J0696

== ENCOUNTER → 2018-12-01 14:25 | Outpatient (CLI) | payer MEDICARE, OTHER, SELFPAY ==
[2018-11-11 14:29] VITALS: BMI 49.4
[2018-11-30 14:48] VITALS: BMI 45.4
[2018-12-01] MEDS: Ceftriaxone 2 GM in 0.9% NS 50 ML Minibag x1 IV (14:38)
[2018-12-01 14:39] VITALS: BP 119/67; PULSE 77; RESP 16; TEMP 37; O2SAT 95; BMI 45.4
== END ==
PROVIDERS: Family Provider Internal Medicine; PCP Internal Medicine; Referring Provider Internal Medicine Infectious Disease; Visit Provider Internal Medicine Infectious Disease
DX: T84.54XA Infection and inflammatory reaction due to internal left knee prosthesis, initial encounter (principal)
CPT/HCPCS: 96365; J7050; A4216; J0696

== ENCOUNTER → 2018-12-02 14:19 | Outpatient (CLI) | payer MEDICARE, OTHER, SELFPAY ==
[2018-11-11 14:29] VITALS: BMI 49.4
[2018-12-01 14:39] VITALS: BMI 45.4
[2018-12-02 14:34] VITALS: BP 93/57; PULSE 76; RESP 18; TEMP 36.3; O2SAT 94; BMI 45.4
[2018-12-02] MEDS: Ceftriaxone 2 GM in 0.9% NS 50 ML Minibag x1 IV (14:49)
== END ==
PROVIDERS: Family Provider Internal Medicine; PCP Internal Medicine; Referring Provider Internal Medicine Infectious Disease; Visit Provider Internal Medicine Infectious Disease
DX: T84.54XA Infection and inflammatory reaction due to internal left knee prosthesis, initial encounter (principal)
CPT/HCPCS: 96365; A4216; J0696

== ENCOUNTER 2018-12-03 14:26 | Outpatient (CLI) | payer MEDICARE, OTHER, SELFPAY ==
[2018-11-11 14:29] VITALS: BMI 49.4
[2018-12-02 14:34] VITALS: BMI 45.4
[2018-12-03] MEDS: 0.9% NaCl IVPB Med Flush (250 mL) 15 ML IV (14:27)
[2018-12-03] MEDS: Ceftriaxone 2 GM in 0.9% NS 50 ML Minibag x1 IV (14:27)
[2018-12-03 14:34] VITALS: BP 122/57; PULSE 84; RESP 18; TEMP 36.4; O2SAT 97
[2018-12-03] MEDS: 0.9% NaCl PICC Flush IV (15:23)
== END 2018-12-03 15:24 | disposition home or self-care (01) ==
LOC: MEDOUTP 14:27 → MS3 14:28
PROVIDERS: Family Provider Internal Medicine; PCP Internal Medicine; Referring Provider Internal Medicine Infectious Disease; Visit Provider Internal Medicine Infectious Disease
DX: T84.54XA Infection and inflammatory reaction due to internal left knee prosthesis, initial encounter (principal)
CPT/HCPCS: 96365; J7050; A4216; J0696

== ENCOUNTER → 2018-12-04 14:12 | Outpatient (CLI) | payer MEDICARE, OTHER, SELFPAY ==
[2018-11-11 14:29] VITALS: BMI 49.4
[2018-12-02 14:34] VITALS: BMI 45.4
[2018-12-04] MEDS: Ceftriaxone 2 GM in 0.9% NS 50 ML Minibag x1 IV (14:25)
[2018-12-04 14:34] VITALS: BP 99/67; PULSE 73; RESP 16; TEMP 36.9; O2SAT 96; BMI 47.5
== END ==
PROVIDERS: Family Provider Internal Medicine; PCP Internal Medicine; Referring Provider Internal Medicine Infectious Disease; Visit Provider Internal Medicine Infectious Disease
DX: T84.54XA Infection and inflammatory reaction due to internal left knee prosthesis, initial encounter (principal)
CPT/HCPCS: 96365; 36592; J7050; A4216; J0696

== ENCOUNTER 2018-12-05 14:24 | Outpatient (CLI) | payer MEDICARE, OTHER, SELFPAY ==
[2018-11-11 14:29] VITALS: BMI 49.4
[2018-12-04 14:34] VITALS: BMI 47.5
[2018-12-05 14:37] VITALS: BP 111/54; PULSE 73; RESP 17; TEMP 36.7; O2SAT 95
[2018-12-05] MEDS: Ceftriaxone 2 GM in 0.9% NS 50 ML Minibag x1 IV (14:40)
[2018-12-05] MEDS: 0.9% NaCl PICC Flush IV (15:55)
== END 2018-12-05 15:58 | disposition home or self-care (01) ==
LOC: MEDOUTP 14:26 → PCU 14:26
PROVIDERS: Family Provider Internal Medicine; PCP Internal Medicine; Visit Provider Internal Medicine Infectious Disease
DX: T84.54XA Infection and inflammatory reaction due to internal left knee prosthesis, initial encounter (principal)
CPT/HCPCS: 96365; J7040; A4216; J0696

== ENCOUNTER 2018-12-06 14:13 | Outpatient (CLI) | payer MEDICARE, OTHER, SELFPAY ==
[2018-11-11 14:29] VITALS: BMI 49.4
[2018-12-04 14:34] VITALS: BMI 47.5
[2018-12-06 14:23] VITALS: BP 127/73; PULSE 77; RESP 16; TEMP 36.4; O2SAT 96
[2018-12-06] MEDS: Ceftriaxone 2 GM in 0.9% NS 50 ML Minibag x1 IV (14:23)
== END 2018-12-06 15:30 | disposition home or self-care (01) ==
LOC: MEDOUTP 14:14 → MS3 14:15
PROVIDERS: Family Provider Internal Medicine; PCP Internal Medicine; Visit Provider Internal Medicine Infectious Disease
DX: T84.54XA Infection and inflammatory reaction due to internal left knee prosthesis, initial encounter (principal)
CPT/HCPCS: 96365; J7040; J0696

== ENCOUNTER → 2018-12-07 14:08 | Outpatient (CLI) | payer MEDICARE, OTHER, SELFPAY ==
[2018-11-11 14:29] VITALS: BMI 49.4
[2018-12-04 14:34] VITALS: BMI 47.5
[2018-12-07 14:16] VITALS: BP 120/79; PULSE 85; RESP 18; TEMP 36.5; O2SAT 96; BMI 49.4
[2018-12-07] MEDS: Ceftriaxone 2 GM in 0.9% NS 50 ML Minibag x1 IV (14:19)
== END ==
PROVIDERS: Family Provider Internal Medicine; PCP Internal Medicine; Referring Provider Internal Medicine Infectious Disease; Visit Provider Internal Medicine Infectious Disease
DX: T84.54XA Infection and inflammatory reaction due to internal left knee prosthesis, initial encounter (principal)
CPT/HCPCS: 96365; J7050; A4216; J0696

== ENCOUNTER → 2018-12-08 14:25 | Outpatient (CLI) | payer MEDICARE, OTHER, SELFPAY ==
[2018-11-11 14:29] VITALS: BMI 49.4
[2018-12-07 14:16] VITALS: BMI 49.4
[2018-12-08 14:46] VITALS: BP 135/74; PULSE 70; RESP 16; TEMP 36.7; O2SAT 95; BMI 49.4
[2018-12-08] MEDS: Ceftriaxone 2 GM in 0.9% NS 50 ML Minibag x1 IV (14:46)
== END ==
PROVIDERS: Family Provider Internal Medicine; PCP Internal Medicine; Referring Provider Internal Medicine Infectious Disease; Visit Provider Internal Medicine Infectious Disease
DX: T84.54XA Infection and inflammatory reaction due to internal left knee prosthesis, initial encounter (principal)
CPT/HCPCS: 96365; J7050; A4216; J0696

== ENCOUNTER → 2018-12-09 14:12 | Outpatient (CLI) | payer MEDICARE, OTHER, SELFPAY ==
[2018-11-11 14:29] VITALS: BMI 49.4
[2018-12-08 14:46] VITALS: BMI 49.4
[2018-12-09] MEDS: Ceftriaxone 2 GM in 0.9% NS 50 ML Minibag x1 IV (14:27)
[2018-12-09 14:31] VITALS: BP 114/57; PULSE 87; RESP 16; TEMP 36.4; O2SAT 96; BMI 46.3
== END ==
PROVIDERS: Family Provider Internal Medicine; PCP Internal Medicine; Referring Provider Internal Medicine Infectious Disease; Visit Provider Internal Medicine Infectious Disease
DX: T84.54XA Infection and inflammatory reaction due to internal left knee prosthesis, initial encounter (principal)
CPT/HCPCS: 96365; J7050; A4216; J0696

== ENCOUNTER → 2018-12-10 11:44 | Outpatient (CLI) | payer MEDICARE, OTHER, SELFPAY ==
[2018-11-11 14:29] VITALS: BMI 49.4
[2018-12-09 14:31] VITALS: BMI 46.3
[2018-12-10 12:07] VITALS: BP 91/69; PULSE 65; RESP 16; TEMP 36.7; BMI 49.4
[2018-12-10] MEDS: Ceftriaxone 2 GM in 0.9% NS 50 ML Minibag x1 IV (12:07)
== END ==
PROVIDERS: Family Provider Internal Medicine; PCP Internal Medicine; Referring Provider Internal Medicine Infectious Disease; Visit Provider Internal Medicine Infectious Disease
DX: T84.54XA Infection and inflammatory reaction due to internal left knee prosthesis, initial encounter (principal)
CPT/HCPCS: 96365; J7050; A4216; J0696

== ENCOUNTER → 2018-12-11 14:17 | Outpatient (CLI) | payer MEDICARE, OTHER, SELFPAY ==
[2018-11-11 14:29] VITALS: BMI 49.4
[2018-12-10 12:07] VITALS: BMI 49.4
[2018-12-11 14:26] VITALS: BP 130/61; PULSE 82; RESP 18; TEMP 36.6; O2SAT 95; BMI 49.4
[2018-12-11] MEDS: Ceftriaxone 2 GM in 0.9% NS 50 ML Minibag x1 IV (14:55)
[2018-12-11 15:13] LABS: Hematocrit 36.4 % (37-47); Hemoglobin 11.4 g/dl (12.0-15.0); Mean Corp Hgb Conc 31.3 g/gl (32-36); Mean Corpuscular Volume 92.6 fL (81-99); Mean Platelet Vol. 10.4 fl (6.2-12.0); Platelet Count 257 K/mm3 (150-450); RBC Distribution Width CV 14.6 % (11.6-14.6); RBC Distribution Width SD 47.8 fl (35.1-43.9); Red Blood Count 3.93 M/mm3 (4.2-5.4); White Blood Count 4.8 K/mm3 (4.4-11.0)
[2018-12-11 15:27] LABS: Anion Gap 6 (5-15); BUN 11 mg/dL (7-18); BUN/Creat Ratio 16.2 RATIO (10-20); Calcium,Total 8.9 mg/dL (8.5-10.1); Chloride 107 mmol/L (98-107); Creatinine, Serum 0.68 mg/dL (0.55-1.02); EST Glomerular Filtration Rate 91 mL/min (>60); Est Glom Filt Rate - Afr Amer 110 mL/min (>60); Glucose 109 mg/dL (74-106); Potassium 3.5 mmol/L (3.5-5.1); Sodium Level 138 mmol/L (136-145)
[2018-12-11 15:40] LABS: Scan Indicated on CBC? Y/N NO
[2018-12-11 16:04] LABS: Erythrocyte Sedimentation Rate 99 mm/hr (0-30)
== END ==
PROVIDERS: Family Provider Internal Medicine; PCP Internal Medicine; Referring Provider Internal Medicine Infectious Disease; Visit Provider Internal Medicine Infectious Disease
DX: T84.54XA Infection and inflammatory reaction due to internal left knee prosthesis, initial encounter (principal)
CPT/HCPCS: 96365; 36592; 80048; 85027; 85652; J7050; A4216; J0696

== ENCOUNTER 2018-12-12 13:59 | Outpatient (CLI) | payer MEDICARE, OTHER, SELFPAY ==
[2018-11-11 14:29] VITALS: BMI 49.4
[2018-12-11 14:26] VITALS: BMI 49.4
[2018-12-12] MEDS: Ceftriaxone 2 GM in 0.9% NS 50 ML Minibag x1 IV (15:12)
[2018-12-12 15:13] VITALS: BP 136/85; PULSE 70; RESP 16; TEMP 36.7; O2SAT 97
[2018-12-12] MEDS: 0.9% NaCl PICC Flush IV (16:01)
[2018-12-12 16:02] VITALS: BP 124/58; PULSE 65; RESP 16; TEMP 36.9; O2SAT 97
== END 2018-12-12 16:00 | disposition home or self-care (01) ==
LOC: MEDOUTP 13:59 → ICU 14:58
PROVIDERS: Family Provider Internal Medicine; PCP Internal Medicine; Referring Provider Internal Medicine Infectious Disease; Visit Provider Internal Medicine Infectious Disease
DX: T84.54XA Infection and inflammatory reaction due to internal left knee prosthesis, initial encounter (principal)
CPT/HCPCS: 96365; 96523; A4216; J0696

== ENCOUNTER 2018-12-13 14:35 | Outpatient (CLI) | payer MEDICARE, OTHER, SELFPAY ==
[2018-11-11 14:29] VITALS: BMI 49.4
[2018-12-11 14:26] VITALS: BMI 49.4
[2018-12-13 14:45] VITALS: BP 144/47; PULSE 81; RESP 18; TEMP 36.9; BMI 49.4
[2018-12-13] MEDS: 0.9% NaCl PICC Flush IV ×2 (14:56→16:09)
[2018-12-13 16:06] VITALS: BP 123/78; PULSE 73; RESP 16; TEMP 36.6; O2SAT 96; BMI 49.4
== END 2018-12-13 15:30 | disposition home or self-care (01) ==
LOC: ICU 14:50 → MEDOUTP 14:50
PROVIDERS: Family Provider Internal Medicine; PCP Internal Medicine; Referring Provider Internal Medicine Infectious Disease; Visit Provider Internal Medicine Infectious Disease
DX: T84.54XA Infection and inflammatory reaction due to internal left knee prosthesis, initial encounter (principal)
CPT/HCPCS: 96365; A4216; J0696

== ENCOUNTER → 2018-12-14 | Outpatient (CLI) | payer MEDICARE, OTHER, SELFPAY ==
[2018-11-11 14:29] VITALS: BMI 49.4
[2018-12-13 16:06] VITALS: BMI 49.4
[2018-12-14] MEDS: Ceftriaxone 2 GM in 0.9% NS 50 ML Minibag x1 IV (14:23)
[2018-12-14 14:24] VITALS: BP 118/58; PULSE 81; RESP 16; TEMP 36.6; O2SAT 94; BMI 49.4
== END | disposition home or self-care (01) ==
LOC: MEDOUTP 14:14
PROVIDERS: Family Provider Internal Medicine; PCP Internal Medicine; Referring Provider Internal Medicine Infectious Disease; Visit Provider Internal Medicine Infectious Disease
DX: T84.54XA Infection and inflammatory reaction due to internal left knee prosthesis, initial encounter (principal)
CPT/HCPCS: 96365; J7050; A4216; J0696

== ENCOUNTER → 2018-12-15 14:18 | Outpatient (CLI) | payer MEDICARE, OTHER, SELFPAY ==
[2018-11-11 14:29] VITALS: BMI 49.4
[2018-12-14 14:24] VITALS: BMI 49.4
[2018-12-15 14:33] VITALS: BP 127/61; PULSE 73; RESP 18; TEMP 36.3; O2SAT 98
[2018-12-15] MEDS: Ceftriaxone 2 GM in 0.9% NS 50 ML Minibag x1 IV (14:34)
== END ==
PROVIDERS: Family Provider Internal Medicine; PCP Internal Medicine; Referring Provider Internal Medicine Infectious Disease; Visit Provider Internal Medicine Infectious Disease
DX: T84.54XA Infection and inflammatory reaction due to internal left knee prosthesis, initial encounter (principal)
CPT/HCPCS: 96365; J7050; J0696

== ENCOUNTER → 2018-12-16 14:13 | Outpatient (CLI) | payer MEDICARE, OTHER, SELFPAY ==
[2018-11-11 14:29] VITALS: BMI 49.4
[2018-12-14 14:24] VITALS: BMI 49.4
[2018-12-16 14:19] VITALS: BP 110/75; PULSE 85; RESP 16; TEMP 36.4; O2SAT 97; BMI 49.4
[2018-12-16] MEDS: Ceftriaxone 2 GM in 0.9% NS 50 ML Minibag x1 IV (14:26)
--- NOTE | 2018-12-16 16:10 | NURSING ---
NO SIGN OF BLEEDING FROM PICC DC SITE. DISCHARGED HOME.
== END ==
PROVIDERS: Family Provider Internal Medicine; PCP Internal Medicine; Referring Provider Internal Medicine Infectious Disease; Visit Provider Internal Medicine Infectious Disease
DX: T84.54XA Infection and inflammatory reaction due to internal left knee prosthesis, initial encounter (principal)
CPT/HCPCS: 96365; J7050; A4216; J0696

== ENCOUNTER → 2023-03-19 | Outpatient (CLI) | payer OTHER, SELFPAY ==
[2023-03-19 11:57] LABS: Free T3 2.3 pg/mL (2.18-3.98); T4 Free Direct 1.18 ng/dL (0.76-1.46); Thyroid Stim Hormone (TSH) 0.28 uIU/mL (0.358-3.74)
== END | disposition home or self-care (01) ==
LOC: LAB 09:51
PROVIDERS: PCP Internal Medicine; Referring Provider Chiropractor; Visit Provider Chiropractor
DX: E07.9 Disorder of thyroid, unspecified (principal)
CPT/HCPCS: 36415; 84439; 84443; 84481